=== PATIENT | female | born 1980 | race Caucasian/White ===

== ENCOUNTER 2019-06-09 09:48 | Outpatient (RCR) | payer OTHER, SELFPAY ==
[2019-06-09 11:01] VITALS: BMI 44.8
== END 2019-09-07 23:59 | disposition home or self-care (01) ==
LOC: ANHDMC 09:48
PROVIDERS: PCP Family Medicine; Visit Provider Obstetrics & Gynecology
DX: O24.410 Gestational diabetes mellitus in pregnancy, diet controlled (principal); Z3A.15 15 weeks gestation of pregnancy; Z71.3 Dietary counseling and surveillance; Z71.89 Other specified counseling
CPT/HCPCS: 97802; G0108

== ENCOUNTER 2019-10-24 15:24 | Outpatient (CLI) | payer OTHER, SELFPAY ==
[2019-10-24] VITALS (21 sets, daily range): BP systolic 135–162; BP diastolic 76–95; PULSE 89–114; TEMP 36.6; BMI 45.0
[2019-10-24 16:22] LABS: Basophils Percent Auto 0.2 % (0.2-1.2); Eosinophils Absolute Auto 0.1 K/mm3 (0-0.3); Eosinophils Percent Auto 0.9 % (0-4.4); Hematocrit 37.2 % (37.0-47.0); Hemoglobin 12.2 g/dL (12.0-15.0); Immature Granulocyte Absolute 0.08 K/mm3 (0.00-0.031); Immature Granulocyte Percent A 0.5 % (0-0.5); Lymphocytes Absolute Auto 1.69 K/mm3 (0.9-3.2); Lymphocytes Percent Auto 10.4 % (18.3-44.2); Mean Corpuscular HGB Conc 32.8 g/dl (32-36); Mean Corpuscular Volume 88.4 fl (80-100); Mean Platelet Volume 10.1 fl (7.4-10.4); Monocytes Absolute Auto 0.6 K/mm3 (0.1-0.6); Monocytes Percent Auto 3.9 % (2.6-8.5); Neutrophils Absolute Auto 13.7 K/mm3 (1.3-6.7); Neutrophils Percent Auto 84.1 % (45.5-73.1); Platelet Count Result 233 k/mm3 (150-375); Red Blood Count 4.21 M/mm3 (4.2-5.4); Red Cell Distribution Width 13.8 % (11.5-14.5); White Blood Count 16.3 K/mm3 (4.5-10.0)
[2019-10-24 16:29] LABS: Add Urine Microscopic? YES; Appearance Urine Cloudy (Clear); Bacteria Urine 4+ /hpf; Bilirubin Urine Negative (Negative); Blood Urine Negative (Negative); Color Urine Yellow (Yellow); Glucose Urine UA Negative (Negative); Ketones Urine Trace mg/dL (Negative); Leukocyte Esterase Ur 3+ LEU/UL (NEGATIVE); Mucus Urine Rare /lpf; Nitrate Urine Negative (Negative); Protein Urine Negative (Negative); Specific Grav Ur 1.018 (1.001-1.035); Squamous Epithelial Cell Urine Many /hpf (Few); Urobilinogen Urine Negative mg/dL (<2.0); WBC Urine >75 /hpf (0-3)
[2019-10-24 16:31] LABS: Creatinine Urine 116.1 mg/dL; Total Protein Urine Random 9 mg/dL
[2019-10-24 16:34] LABS: Alanine Aminotransferase 11 U/L (4-35); Albumin Level 3.6 g/dL (3.5-5.1); Alkaline Phosphatase 153 U/L (38-126); Aspartate Amino Transferase 18 U/L (14-36); Bilirubin,Total 0.8 mg/dL (0.2-1.3); Blood Urea Nitrogen 8 mg/dL (7-17); Calcium 9.4 mg/dL (8.4-10.2); Carbon Dioxide 20 mmol/L (22-30); Chloride 106 mmol/L (98-107); Estimated Glomerular Filt Rate > 60; Glucose 85 mg/dL (65-105); Potassium 3.9 mmol/L (3.4-5.0); Sodium 133 mmol/L (137-145); Uric Acid 5.8 mg/dL (2.5-7.5)
[2019-10-24 17:41] LABS: Glucose Point of Care 78 (65-105)
--- NOTE | 2019-10-24 17:50 | PC.NURSE ---
Called Dr Gray. Reported patient's lab results and blood pressures. Reported patient came in saying she has been monitoring her blood pressure at home and it has been creeping up. She also states she doesn't feel herself, has a small headache and felt nauseous earlier today. FHR is reactive. Small contractions that patient doesn't feel. Dr Gray wants patient monitored until 2029. If her BPs get above 160/110, start hypertensive protocol.
--- NOTE | 2019-10-24 19:44 | PC.NURSE ---
Updated Dr. Gray on patient BP's. Order for Labetolol 100mg NOW PO. Called Dr. Gray with BP's 1 hour after administering.
[2019-10-24] MEDS: LABETALOL HCL 100 MG TABLET PO (20:00)
--- NOTE | 2019-10-24 20:15 | PC.NURSE ---
Patient educated on 24 hour urine collection. Patient stated understanding and denies questions. 24 Hour urine collection started 10/24/2019 at 2015.
--- NOTE | 2019-10-24 20:39 | OBADM ---
This patient, Tanja Spring, admitted to the OB room Labor/Delivery/Recovery 119 for observation. Patient/family oriented to hospital policies and general routines including ID bracelet, bed and alarms, visiting hours, pain management, procedures, bathroom and other care routines, personal items, smoking policy, room service/diet, and visiting hours. Patient/Family are encouraged to report perceived risks to care and to ask questions if they do not understand what they are told or what they should do.
--- NOTE | 2019-10-24 21:06 | PC.NURSE ---
Discharge orders received from Dr Gray.
--- NOTE | 2019-10-24 21:22 | PC.NURSE ---
Discharge instructions reviewed with patient. Patient educated on 24 hour urine collection. Patient educated on labetalol and instructed to draft roller picker prescription at preferred pharmacy. Patient states understanding of discharge paperwork. Patient instructed to call Dr. Gray's office on Saturday for follow-up appointment. HIP precautions reviewed with patient. Patient states understanding of all discharge paperwork and teaching. Patient denies questions.
[2019-10-24 21:25] LABS: Glucose Point of Care 123 (65-105)
== END 2019-10-24 21:23 | disposition home or self-care (01) ==
LOC: ANHOBOP 15:30 → ANHLDR 15:30
PROVIDERS: Visit Provider Obstetrics & Gynecology
DX: O13.9 Gestational [pregnancy-induced] hypertension without significant proteinuria, unspecified trimester (principal)
CPT/HCPCS: 36415; 59025; 80053; 81001; 82570; 84156; 84550; 85025; 87086; 87088; A9270

== ENCOUNTER 2019-10-31 13:19 | Outpatient (CLI) | payer OTHER, SELFPAY ==
[2019-10-31] MEDS: TETANUS,DIPHTHERIA,AC PERTUSSIS ADULT 0.5 ML (ADACEL) IM (14:03)
== END 2019-10-31 13:20 | disposition home or self-care (01) ==
LOC: ANHOBOP 13:22
PROVIDERS: Visit Provider Obstetrics & Gynecology
DX: Z23 Encounter for immunization (principal)
CPT/HCPCS: 90715

== ENCOUNTER 2019-11-04 09:08 | Inpatient (IN) | payer OTHER, SELFPAY ==
[2019-11-04] VITALS (19 sets, daily range): BP systolic 125–154; BP diastolic 68–92; PULSE 80–105; TEMP 36.3; BMI 45.0
--- NOTE | ~2019-11-04 | US_ITS ---
EXAMINATION: US OB limited w BPP EXAM DATE: 11/04/2019 13:21 INDICATION: Gestational diabetes, elevated blood pressure. Third trimester. TECHNIQUE: Pelvic obstetrical transabdominal sonogram was performed by a technologist. There are mu ltiple grayscale and Doppler images available for interpretation. There are no earlier studies of th is gestation for comparison. FINDINGS: There is a single fetus identified in breech presentation with a heart rate of 150 beats pe r minute. The placenta is located in the posterior fundal position. There is no sonographic evidence of retroplacental hemorrhage identified. The amniotic fluid index is 19.5 centimeters, which is norm al. BIOPHYSICAL PROFILE (performed by the technologist) breathing (30 sec sustained breathing in 30 minutes): 2 out of 2 movement (3 gross body movements in 30 minutes): 2 out of 2 tone (one episode of ywkjemu-tfvzeghro-ihmpebl limb movement): 2 out of 2 Amniotic fluid pocket (2 cm): 2 out of 2 Total score: 8 out of 8 IMPRESSION: 1. Single fetus with heart rate of 150 bpm. 2. Normal biophysical profile score of 8 out of 8. 3. Normal HUGO 19.5 cm. Reviewed, dictated and finalized at location B.
--- NOTE | 2019-11-04 09:07 | LDADM ---
This patient, Tanja Spring, was admitted to OB Post 116 on 11/04/19 at 09:08. Plans for labor, pain management and were discussed with patient. Patient/family oriented to hospital policies and general routines including ID bracelet, bed and alarms, visiting hours, pain management, procedures, bathroom and other care routines, personal items, smoking policy, room service/diet and guest tray routines, infant security routines, and visiting hours. Patient/Family are encouraged to report perceived risks to care and to ask questions if they do not understand what they are told or what they should do. See OBIX for further documentation.
[2019-11-04 09:53] LABS: Basophils Percent Auto 0.2 % (0.2-1.2); Eosinophils Absolute Auto 0.2 K/mm3 (0-0.3); Eosinophils Percent Auto 1.5 % (0-4.4); Hematocrit 34.9 % (37.0-47.0); Hemoglobin 11.7 g/dL (12.0-15.0); Immature Granulocyte Absolute 0.05 K/mm3 (0.00-0.031); Immature Granulocyte Percent A 0.4 % (0-0.5); Lymphocytes Absolute Auto 1.31 K/mm3 (0.9-3.2); Lymphocytes Percent Auto 11.4 % (18.3-44.2); Mean Corpuscular HGB Conc 33.5 g/dl (32-36); Mean Corpuscular Hemoglobin 29.3 pg (26-34); Mean Corpuscular Volume 87.3 fl (80-100); Mean Platelet Volume 9.8 fl (7.4-10.4); Monocytes Absolute Auto 0.5 K/mm3 (0.1-0.6); Monocytes Percent Auto 4.4 % (2.6-8.5); Neutrophils Absolute Auto 9.4 K/mm3 (1.3-6.7); Neutrophils Percent Auto 82.1 % (45.5-73.1); Platelet Count Result 230 k/mm3 (150-375); White Blood Count 11.5 K/mm3 (4.5-10.0)
[2019-11-04 10:05] LABS: Alanine Aminotransferase 14 U/L (4-35); Albumin Level 3.3 g/dL (3.5-5.1); Alkaline Phosphatase 151 U/L (38-126); Aspartate Amino Transferase 19 U/L (14-36); Bilirubin,Total 0.8 mg/dL (0.2-1.3); Blood Urea Nitrogen 5 mg/dL (7-17); Carbon Dioxide 20 mmol/L (22-30); Chloride 106 mmol/L (98-107); Estimated Glomerular Filt Rate > 60; Glucose 133 mg/dL (65-105); Potassium 3.8 mmol/L (3.4-5.0); Sodium 134 mmol/L (137-145); Uric Acid 5.6 mg/dL (2.5-7.5)
[2019-11-04 10:29] LABS: Creatinine Urine 130.2 mg/dL; Total Protein Urine Random 10 mg/dL
--- NOTE | 2019-11-04 10:39 | PC.NURSE ---
Called Dr. Spring with pt status. Informed of labs, BPs, NSt, blood glucose, and pain. Orders received.
[2019-11-04] MEDS: ACETAMINOPHEN 500 MG TABLET 1000 MG PO (11:56)
--- NOTE | 2019-11-04 12:20 | PC.NURSE ---
Dr. Spring at bedside. Plan of care discussed with pt. Orders received.
[2019-11-04 12:24] LABS: Add Urine Microscopic? YES; Appearance Urine Cloudy (Clear); Bacteria Urine 4+ /hpf; Bilirubin Urine Negative (Negative); Blood Urine Negative (Negative); Color Urine Yellow (Yellow); Glucose Urine UA Negative (Negative); Ketones Urine Negative (Negative); Leukocyte Esterase Ur 3+ LEU/UL (NEGATIVE); Mucus Urine Rare /lpf; Nitrate Urine Negative (Negative); Protein Urine Negative (Negative); Specific Grav Ur 1.008 (1.001-1.035); Squamous Epithelial Cell Urine Many /hpf (Few); Urobilinogen Urine Negative mg/dL (<2.0); WBC Urine 31-50 /hpf (0-3)
--- NOTE | 2019-11-04 12:55 | PM.IMHP ---
H&P: HPI History of Present Illness Chief complaint: PIH Narrative: Tanja Spring is a 39 year old female currently 36w3d gestation with an AMANDEEP 11/29/19. This is an IVF/frozen cycle and patient is dated by initial early ultrasound. Patient has known history of chronic hypertension. She was normotensive without medication for the majority of her , however, began to experience a slight increase in blood pressure measurements a few weeks ago. Patient was started on Labetalol 100 mg b.i.d. She did not meet criteria for preeclampsia as all laboratory findings were within normal limits. Since beginning medication, patient's blood pressure at home has ranged from 120 to 140s over 70s to 90s. Patient reports waking up this morning and just did not feel right. She took her blood pressure and initial blood pressure measurement was 140s over 90s. She had just taken her labetalol and repeated blood pressure approximately 1 hour later and noted that the SBP was in the 150s. She presented to L&D for evaluation. She also states that upon waking this morning, she had a headache as well as constant epigastric pain that radiates to right side of upper abdomen. Denies any lower abdominal pain. States that pain is constant and is rated 5-6/10. Pain does not seem to be affected by position, breathing, or activity and is persistent. Patient had not taken any medication prior to arrival on Labor and delivery. Otherwise she denies any chest pain, shortness of breath, nausea, vomiting, or visual disturbances. Patient does have a history of GERD, however, states that the epigastric pain she is experiencing is significantly different from her usual GERD symptoms. Patient also has a history of gestational diabetes during this and is currently being managed with insulin. She denies any leakage of fluid or vaginal bleeding. Denies contractions and reports good movement. On Labor and Delivery, patient's blood pressure was initially within normal limits however began to increase. Patient's headache and epigastric pain remained persistent despite Tylenol administration. Although patient's laboratory results were within normal limits, due to the recent increase in patient's blood pressures and persistent symptoms, decision made to admit patient to L&D for delivery secondary to chronic hypertension with worsening blood pressure. Review of Systems Review of Systems: All systems reviewed & are unremarkable except as noted in HPI and below Constitutional: Constitutional: Reports as per HPI and Reports no additional constitutional complaints Eyes: Eyes: Reports no additional eye complaints and Denies blurry vision ENT: Reports system reviewed and no additional complaints, except as documented, Reports as per HPI and Reports Normal hearing present Cardiovascular: Cardiovascular: Reports as per HPI, Reports no additional cardiovascular complaints, Denies chest pain and Denies lightheadedness Respiratory: Respiratory: Reports as per HPI, Reports no additional respiratory complaints, Denies cough and Denies dyspnea Gastrointestinal: Gastrointestinal: Reports as per HPI, Reports no additional gastrointestinal complaints, Reports abdominal pain, Denies heartburn, Denies nausea and Denies vomiting Genitourinary: Genitourinary: Reports no additional female genitourinary complaints and Reports as per HPI Musculoskeletal: Musculoskeletal: Reports no additional musculoskeletal complaints and Reports as per HPI Integumentary/Breasts: Skin/Breast: Reports system reviewed and no additional complaints, except as docu and Reports as per HPI Neurologic: Reports system reviewed and no additional complaints, except as documented, Reports as per HPI and Reports headache(s) Psychiatric: Psychiatric: Reports no additional psychiatric complaints and Reports as per HPI Endocrine: Endocrine: Reports no additional endocrine complaints Hematologic/Lymphatic: Hemat
--- NOTE | 2019-11-04 13:52 | PC.NURSE ---
Called Dr. Spring with pt status. Pt states that she is uncomfortable with contractions and epigastric pain. Informed of BP, and ultrasound report. Order received.
[2019-11-04] MEDS: BETAMETHASONE SOD PHOS/ACETATE 30 MG/5 ML VIAL 12 MG IM (14:13)
[2019-11-04 15:00] LABS: Glucose Point of Care 134 (65-105)
[2019-11-04] MEDS: LABETALOL HCL 100 MG TABLET PO (20:20)
[2019-11-04] MEDS: metFORMIN HCL 500 MG TABLET 1000 MG PO (20:32)
[2019-11-04 20:42] LABS: Glucose Point of Care 216 (65-105)
--- NOTE | 2019-11-04 20:42 | PC.NURSE ---
reported blood sugar to dr abdullahi. She instructed for pt to take bedtime dose of insulin.
[2019-11-05] VITALS (63 sets, daily range): BP systolic 75–148; BP diastolic 50–96; PULSE 57–102; RESP 13–23; TEMP 36.3–37.2; O2SAT 93–100
--- NOTE | 2019-11-05 07:43 | WPDANESEPPF ---
Anes - Initial Pre Proc Eval Procedure: Operation Date: 11/05/19 14:00 Proposed Procedures p Primary Section - Lakeisha Spring MD Date/Time: 11/05/19 07:43 Surgeon: Van Gray MD Pre Op Diagnosis: PIH Patient Data Age: 39 Gender: F Height: 1.68 m Weight: 126.5 kg Last Vital Signs Temp 36.7 C 11/05/19 04:00 Pulse 102 H 11/05/19 07:01 BP 148/96 H 11/05/19 07:01 Allergies Allergy/AdvReac Type Severity Reaction Status Date / Time bee venom protein (honey bee) Allergy Severe Anaphylactic Verified 10/26/19 11:00 Shock Home Medications Medication Instructions Recorded Confirmed Type blood sugar diagnostic #100 each 06/23/19 10/24/19 Rx metformin 1,000 mg tablet 1,000 mg PO DAILY 06/23/19 11/04/19 History metformin 500 mg tablet,extended 500 mg PO DAILY 06/23/19 11/04/19 History release 24 hr vits 75-iron 28 mg-folic 1 pkg PO DAILY 06/23/19 11/04/19 History acid 800 mcg-omega-3 oral combo pack sertraline 100 mg tablet 100 mg PO DAILY #30 tablet 07/20/19 11/04/19 Rx insulin detemir U-100 100 unit/mL 34 unit SUB-Q DAILY 09/10/19 11/04/19 History subcutaneous solution labetalol 100 mg PO Q12H 30 Days #60 tablet 10/24/19 11/04/19 Rx Laboratory Tests 11/04/19 11/04/19 11/04/19 09:38 09:38 09:38 WBC 11.5 K/mm3 H K/mm3 (4.5-10.0) RBC 4.00 M/mm3 L M/mm3 (4.2-5.4) Hgb 11.7 g/dL L g/dL (12.0-15.0) Hct 34.9 % L % (37.0-47.0) MCV 87.3 fl fl (80-100) MCH 29.3 pg pg (26-34) MCHC 33.5 g/dl g/dl (32-36) RDW 14.0 % % (11.5-14.5) Plt Count 230 k/mm3 k/mm3 (150-375) MPV 9.8 fl fl (7.4-10.4) Immature Gran % (Auto) 0.4 % % (0-0.5) Neut % (Auto) 82.1 % H % (45.5-73.1) Lymph % (Auto) 11.4 % L % (18.3-44.2) [place] % (Auto) 4.4 % % (2.6-8.5) Eos % (Auto) 1.5 % % (0-4.4) Baso % (Auto) 0.2 % % (0.2-1.2) Lymph # (Auto) 1.31 K/mm3 K/mm3 (0.9-3.2) [place] # (Auto) 0.5 K/mm3 K/mm3 (0.1-0.6) Eos # (Auto) 0.2 K/mm3 K/mm3 (0-0.3) Baso # (Auto) 0.0 K/mm3 K/mm3 (0.0-0.1) Abs Immat Gran (auto) 0.05 K/mm3 H K/mm3 (0.00-0.031) Absolute Neuts (auto) 9.4 K/mm3 H K/mm3 (1.3-6.7) Absolute Nucleated RBC 0.0 K/mm3 K/mm3 (0.0-0.012) Nucleated RBC % 0.0 % % (0.0-0.2) Sodium 134 mmol/L L mmol/L (137-145) Potassium 3.8 mmol/L mmol/L (3.4-5.0) Chloride 106 mmol/L mmol/L (98-107) Carbon Dioxide 20 mmol/L L mmol/L (22-30) BUN 5 mg/dL L mg/dL (7-17) Creatinine 0.50 mg/dL L mg/dL (0.7-1.0) Estim Creat Clear Calc Not Reportable Estimated GFR > 60 (59 - ) Glucose 133 mg/dL H mg/dL (65-105) POC Capillary Glucose Uric Acid 5.6 mg/dL mg/dL (2.5-7.5) Calcium 9.0 mg/dL mg/dL (8.4-10.2) Total Bilirubin 0.8 mg/dL mg/dL (0.2-1.3) AST 19 U/L U/L (14-36) ALT 14 U/L U/L (4-35) Alkaline Phosphatase 151 U/L H U/L (38-126) Total Protein 7.0 g/dL g/dL (6.3-8.2) Albumin 3.3 g/dL L g/dL (3.5-5.1) Urine Color Urine Appearance Urine pH Ur Specific [place] Urine Protein Urine Glucose (UA) Urine Ketones Ur Blood (Man) Urine Nitrate Urine Bilirubin Urine Urobilinogen Ur Leukocyte Esterase Urine RBC Urine WBC Ur Squamous Epith Cells Urine Bacteria Urine Mucus U Random Total Protein 10 mg/dL mg/dL Urine Creatinine 130.2 mg/dL mg/dL 11/04/19 11/04/19 11/04/19 12:07 14:57 20:23 WBC RBC
[2019-11-05 08:19] LABS: Basophils Percent Auto 0.2 % (0.2-1.2); Eosinophils Percent Auto 0.1 % (0-4.4); Hematocrit 36.3 % (37.0-47.0); Hemoglobin 11.8 g/dL (12.0-15.0); Immature Granulocyte Absolute 0.07 K/mm3 (0.00-0.031); Immature Granulocyte Percent A 0.5 % (0-0.5); Lymphocytes Absolute Auto 1.63 K/mm3 (0.9-3.2); Lymphocytes Percent Auto 11.1 % (18.3-44.2); Mean Corpuscular HGB Conc 32.5 g/dl (32-36); Mean Corpuscular Hemoglobin 28.6 pg (26-34); Mean Corpuscular Volume 87.9 fl (80-100); Mean Platelet Volume 10.3 fl (7.4-10.4); Monocytes Absolute Auto 0.7 K/mm3 (0.1-0.6); Monocytes Percent Auto 4.6 % (2.6-8.5); Neutrophils Absolute Auto 12.3 K/mm3 (1.3-6.7); Neutrophils Percent Auto 83.5 % (45.5-73.1); Platelet Count Result 235 k/mm3 (150-375); Red Blood Count 4.13 M/mm3 (4.2-5.4); Red Cell Distribution Width 14.1 % (11.5-14.5); White Blood Count 14.7 K/mm3 (4.5-10.0)
[2019-11-05] MEDS: LACTATED RINGERS 1,000 ML 999 ML IV CONT ×3 (08:30→10:45)
--- NOTE | 2019-11-05 08:31 | PM.OBPNVD ---
OB - PN: Subj Subjective Date/time seen: 11/05/19 08:31 Patient reports feeling relatively unchanged since yesterday. States that abdominal pain is a little bit better, however, reports persistent headache that did not improve overnight. Patient reports feeling extremely tired this morning. Blood pressure remained mostly within normal limits overnight with few elevations. Plan is to proceed with delivery as previously discussed. Limited bedside ultrasound performed confirming fetus in breech presentation. Plan is to proceed with a section. Indication, risk, and benefits of procedure discussed with patient. Patient understands and agrees with plan. OB - PN: Obj Data Labs CBC & Chem 7: 11/05/19 07:55 11/04/19 09:38 Labs: Laboratory Results - last 24 hr 11/04/19 11/04/19 11/04/19 09:38 09:38 09:38 WBC 11.5 H RBC 4.00 L Hgb 11.7 L Hct 34.9 L MCV 87.3 MCH 29.3 MCHC 33.5 RDW 14.0 Plt Count 230 MPV 9.8 Immature Gran % (Auto) 0.4 Neut % (Auto) 82.1 H Lymph % (Auto) 11.4 L [place] % (Auto) 4.4 Eos % (Auto) 1.5 Baso % (Auto) 0.2 Lymph # (Auto) 1.31 [place] # (Auto) 0.5 Eos # (Auto) 0.2 Baso # (Auto) 0.0 Abs Immat Gran (auto) 0.05 H Absolute Neuts (auto) 9.4 H Absolute Nucleated RBC 0.0 Nucleated RBC % 0.0 Sodium 134 L Potassium 3.8 Chloride 106 Carbon Dioxide 20 L BUN 5 L Creatinine 0.50 L Estim Creat Clear Calc Not Reportable Estimated GFR > 60 Glucose 133 H POC Capillary Glucose Uric Acid 5.6 Calcium 9.0 Total Bilirubin 0.8 AST 19 ALT 14 Alkaline Phosphatase 151 H Total Protein 7.0 Albumin 3.3 L Urine Color Urine Appearance Urine pH Ur Specific [place] Urine Protein Urine Glucose (UA) Urine Ketones Ur Blood (Man) Urine Nitrate Urine Bilirubin Urine Urobilinogen Ur Leukocyte Esterase Urine RBC Urine WBC Ur Squamous Epith Cells Urine Bacteria Urine Mucus U Random Total Protein 10 Urine Creatinine 130.2 11/04/19 11/04/19 11/04/19 12:07 14:57 20:23 WBC RBC Hgb Hct MCV MCH MCHC RDW Plt Count MPV Immature Gran % (Auto) Neut % (Auto) Lymph % (Auto) [place] % (Auto) Eos % (Auto) Baso % (Auto) Lymph # (Auto) [place] # (Auto) Eos # (Auto) Baso # (Auto) Abs Immat Gran (auto) Absolute Neuts (auto) Absolute Nucleated RBC Nucleated RBC % Sodium Potassium Chloride Carbon Dioxide BUN Creatinine Estim Creat Clear Calc Estimated GFR Glucose POC Capillary Glucose 134 H 216 H Uric Acid Calcium Total Bilirubin AST ALT Alkaline Phosphatase Total Protein Albumin Urine Color Yellow Urine Appearance Cloudy H Urine pH 7.0 Ur Specific [place] 1.008 Urine Protein Negative Urine Glucose (UA) Negative Urine Ketones Negative Ur Blood (Man) Negative Urine Nitrate Negative Urine Bilirubin Negative Urine Urobilinogen Negative Ur Leukocyte Esterase 3+ H Urine RBC 3-5 H Urine WBC 31-50 H Ur Squamous Epith Cells Many H Urine Bacteria 4+ H Urine Mucus Rare U Random Total Protein Urine Creatinine 11/05/19 07:55 WBC 14.7 H RBC 4.13 L Hgb 11.8 L Hct 36.3 L MCV 87.9 MCH 28.6 MCHC 32.5 RDW 14.1 Plt Count 235 MPV 10.3 Immature Gran % (Auto) 0.5 Neut % (Auto) 83.5 H Lymph % (Auto) 11.1 L [place] % (Auto) 4.6 Eos % (Auto) 0.1 Baso % (Auto) 0.2 Lymph # (Auto) 1.63 [place] # (Auto) 0.7 H Eos # (Auto) 0.0 Baso # (Auto) 0.0 Abs Immat Gran (auto) 0.07 H Absolute Neuts (auto) 12.3 H Absolute Nucleated RBC 0.0 Nucleated RBC % 0.0 Sodium Potassium Chloride Carbon Dioxide BUN Creatinine Estim Creat Clear Calc Estimated GFR Glucose POC Capillary Glucose Uric Acid Calcium To
[2019-11-05] MEDS: SERTRALINE HCL 50 MG TABLET 100 MG PO (08:35)
[2019-11-05] MEDS: LABETALOL HCL 100 MG TABLET PO (08:35)
[2019-11-05] MEDS: metFORMIN HCL XR 500 MG TAB.SR.24H PO (08:39)
[2019-11-05] MEDS: ceFAZolin 3 GM/D5W 100 ML 100 ML IVPB (09:43)
[2019-11-05 09:52] LABS: HIV 1/2 Ab P24 Ag Result Negative (Negative)
[2019-11-05 09:54] LABS: Rubella IgG Antibody 90.2 IU/ML
[2019-11-05 09:58] LABS: Hepatitis B Surface Antigen Negative (Negative)
[2019-11-05 10:10] LABS: Alanine Aminotransferase 15 U/L (4-35); Albumin Level 3.3 g/dL (3.5-5.1); Alkaline Phosphatase 146 U/L (38-126); Aspartate Amino Transferase 20 U/L (14-36); Bilirubin,Total 0.9 mg/dL (0.2-1.3); Blood Urea Nitrogen 7 mg/dL (7-17); Calcium 9.1 mg/dL (8.4-10.2); Carbon Dioxide 21 mmol/L (22-30); Chloride 105 mmol/L (98-107); Estimated CRCL calculation 171 ml/min; Estimated Glomerular Filt Rate > 60; Glucose 101 mg/dL (65-105); Potassium 3.9 mmol/L (3.4-5.0); Sodium 134 mmol/L (137-145)
[2019-11-05] MEDS: KETOROLAC 30 MG/ML VIAL (*BKC) IV PUSH (11:20)
--- NOTE | 2019-11-05 12:21 | PM.PROC ---
Procedure Note - Detailed Date of procedure: 11/05/19 Pre-op diagnosis: PIH IUP at 36w4d CHTN with worsening HTN and peristent headache AMA IVF GDM, insulin dependent Post-op diagnosis: same Procedure performed: Primary low transverse section via Pfannenstiel Description of procedure: The patient was taken to the operating room where she self transferred to the operating room table. Spinal anesthesia was administered and found to be adequate. The patient was placed in dorsal supine position with a leftward tilt. She was prepped and draped in the usual sterile fashion. A Pfannenstiel skin incision was made with scalpel and carried through to the underlying layer of fascia with the Bovie. The fascia was incised in the midline and the incision was extended laterally with the use of forceps and Haro scissors. The inferior aspect of the fascial incision was grasped with Bartolome clamps, elevated, and the rectus muscles were dissected off with Haro scissors. Attention was turned to the superior aspect of the fascial incision, which in similar manner, was grasped with Bartolome clamps, elevated, and the underlying rectus muscles were also dissected off with Haro scissors. The rectus muscles were in the midline and the peritoneal cavity was entered bluntly. This incision was extended superiorly and inferiorly with good visualization of the bladder. Care was taken to avoid blood vessels. The peritoneum was gently stretched for enhanced visualization. A bladder blade was inserted. The vesicouterine peritoneum was identified and grasped with forceps and entered sharply with Metzenbaum scissors. This incision was extended laterally with the use of Metzenbaum scissors and a bladder flap was created digitally. The bladder blade was reinserted. A low-transverse uterine incision was made with scalpel. This incision was extended with bandage scissors. Amniotomy was performed. Clear amniotic fluid was noted. The infant was noted to be in transverse presentation with head to maternal left side. With gentle maneuvers, the infant's head was grasped and guided to the level of the uterine incision as the remainder of the body was gently depressed cephalad. The 's head was delivered through the incision atraumatically without difficulty followed by the infant's neck, shoulders, and rest of body with gentle fundal pressure. A body cord was noted. The infant's mouth and nose were suctioned with bulb suction. The cord was clamped and cut and the infant was handed off to awaiting nursing staff. A segment of cord was collected for cord gases. Cord blood was also collected. The placenta was delivered spontaneously with fundal massage. An attempt was made to exteriorize the uterus, however, uterus was relatively large and globular and unable to be delivered. Therefore, it was left in situ. The uterus was cleared of all clots and debris. The uterine incision was reapproximated with 0 Vicryl in a running, locked fashion. A 2nd imbricating layer using 0 Monocryl was also performed. Pinpoint areas of bleeding beneath the uterine incision were made hemostatic with Bovie. The anterior surface of the uterus was well visualized, however, the remainder of the uterus was not well visualized. No gross abnormalities were noted and no abnormalities were palpated. The ovaries and fallopian tubes were not visualized. On reinspection of the incision, a small area of bleeding was noted beneath the uterine incision. This area was made hemostatic with a single awengt-ir-cnmem suture using 0 Monocryl. Excellent hemostasis was noted. Hemaderm was applied across the surgical field. Seprafilm was also applied across the uterine incision and anterior surface of the uterus. The peritoneum was reapproximated with 2-0 Monocryl. The fascia was reapproximated with 0 Vicryl in a running fashion. The subcutaneous layer was irrigated with water. Pinpoint areas of bleeding were made hemosta
[2019-11-05] MEDS: DOCUSATE SODIUM 100 MG CAPSULE PO (14:58)
[2019-11-05] MEDS: OXYTOCIN 30 UNITS/NS 500 ML 30 UNITS/500 ML BAG 125 UNITS IV CONT (15:02)
[2019-11-05 18:23] LABS: Glucose Point of Care 83 (65-105)
[2019-11-05] MEDS: DEXTROSE 5%/0.45% SOD CHL 1,000 ML 125 ML IV CONT (18:40)
--- NOTE | 2019-11-05 20:37 | PC.NURSE ---
pt admitted to room 287 per stretcher from labor and delivery after primary delivery of viable male at 1027 today. Mother is a and is choosing to bottle feed . FOB present; Baby in Level II nursery at this time because of respiratory distress. Couple oriented to room staffing and procedures; admission folder reviewed with them. Pt's VSS and assessment WNL.
[2019-11-05] MEDS: metFORMIN HCL XR 500 MG TAB.SR.24H 1000 MG PO (22:17)
[2019-11-06 00:43] LABS: Glucose Point of Care 63 (65-105)
--- NOTE | 2019-11-06 03:05 | PC.NURSE ---
1954 Hung 1000ml LR, Bolusing 500 ml at 500 ml/hr and then running remaining 500 ml at 150 per hour. 99 LR finished, restarted D5-1/2 NS at 125 ml/hr.
[2019-11-06 04:44] LABS: Basophils Percent Auto 0.1 % (0.2-1.2); Eosinophils Absolute Auto 0.2 K/mm3 (0-0.3); Eosinophils Percent Auto 1.2 % (0-4.4); Hematocrit 29.2 % (37.0-47.0); Hemoglobin 9.6 g/dL (12.0-15.0); Immature Granulocyte Absolute 0.06 K/mm3 (0.00-0.031); Immature Granulocyte Percent A 0.4 % (0-0.5); Lymphocytes Absolute Auto 1.39 K/mm3 (0.9-3.2); Lymphocytes Percent Auto 10.3 % (18.3-44.2); Mean Corpuscular HGB Conc 32.9 g/dl (32-36); Mean Corpuscular Hemoglobin 29.1 pg (26-34); Mean Corpuscular Volume 88.5 fl (80-100); Mean Platelet Volume 9.9 fl (7.4-10.4); Monocytes Absolute Auto 0.6 K/mm3 (0.1-0.6); Monocytes Percent Auto 4.4 % (2.6-8.5); Neutrophils Absolute Auto 11.3 K/mm3 (1.3-6.7); Neutrophils Percent Auto 83.6 % (45.5-73.1); Platelet Count Result 181 k/mm3 (150-375); Red Cell Distribution Width 13.9 % (11.5-14.5); White Blood Count 13.5 K/mm3 (4.5-10.0)
[2019-11-06 04:50] VITALS: BP 126/78; PULSE 86; RESP 13; TEMP 36.6; O2SAT 93
[2019-11-06 08:15] VITALS: BP 116/65; PULSE 78; RESP 18; TEMP 36.8; O2SAT 96
[2019-11-06 08:21] LABS: Glucose Point of Care 79 (65-105)
[2019-11-06] MEDS: DOCUSATE SODIUM 100 MG CAPSULE PO ×2 (08:37→17:04)
[2019-11-06] MEDS: POLYSACCHARIDE IRON COMPLEX 150 MG CAPSULE PO ×2 (08:37→17:04)
[2019-11-06] MEDS: metFORMIN HCL XR 500 MG TAB.SR.24H PO (08:38)
[2019-11-06] MEDS: IBUPROFEN 600 MG TABLET PO (08:38)
[2019-11-06] MEDS: SERTRALINE HCL 50 MG TABLET 100 MG PO (08:38)
--- NOTE | 2019-11-06 09:28 | PM.OBPNVD ---
OB - PN: Subj Subjective Date/time seen: 11/06/19 09:28 Patient doing well this morning. Reports complete resolution of headache. Denies any chest pain, shortness of breath, nausea, vomiting, or visual disturbances. Reports mild abdominal pain, well controlled with medication. Patient is tolerating regular diet. Magdaleno catheter in place. She has not yet ambulated. + flatus. OB - PN: Obj Data Labs CBC & Chem 7: 11/06/19 04:11 11/05/19 08:51 Labs: Laboratory Results - last 24 hr 11/05/19 11/05/19 11/05/19 07:55 07:55 07:55 WBC RBC Hgb Hct MCV MCH MCHC RDW Plt Count MPV Immature Gran % (Auto) Neut % (Auto) Lymph % (Auto) [place] % (Auto) Eos % (Auto) Baso % (Auto) Lymph # (Auto) [place] # (Auto) Eos # (Auto) Baso # (Auto) Abs Immat Gran (auto) Absolute Neuts (auto) Absolute Nucleated RBC Nucleated RBC % Sodium Potassium Chloride Carbon Dioxide BUN Creatinine Estim Creat Clear Calc Estimated GFR Glucose POC Capillary Glucose Calcium Total Bilirubin AST ALT Alkaline Phosphatase Total Protein Albumin Hep Bs Antigen Negative HIV 1&2 Ab/P24 Ag 4thGn Negative Rubella IgG Antibody 90.2 11/05/19 11/05/19 11/06/19 08:51 18:22 00:38 WBC RBC Hgb Hct MCV MCH MCHC RDW Plt Count MPV Immature Gran % (Auto) Neut % (Auto) Lymph % (Auto) [place] % (Auto) Eos % (Auto) Baso % (Auto) Lymph # (Auto) [place] # (Auto) Eos # (Auto) Baso # (Auto) Abs Immat Gran (auto) Absolute Neuts (auto) Absolute Nucleated RBC Nucleated RBC % Sodium 134 L Potassium 3.9 Chloride 105 Carbon Dioxide 21 L BUN 7 Creatinine 0.50 L Estim Creat Clear Calc 171 Estimated GFR > 60 Glucose 101 POC Capillary Glucose 83 63 L Calcium 9.1 Total Bilirubin 0.9 AST 20 ALT 15 Alkaline Phosphatase 146 H Total Protein 7.0 Albumin 3.3 L Hep Bs Antigen HIV 1&2 Ab/P24 Ag 4thGn Rubella IgG Antibody 11/06/19 11/06/19 04:11 08:17 WBC 13.5 H RBC 3.30 L Hgb 9.6 L Hct 29.2 L MCV 88.5 MCH 29.1 MCHC 32.9 RDW 13.9 Plt Count 181 MPV 9.9 Immature Gran % (Auto) 0.4 Neut % (Auto) 83.6 H Lymph % (Auto) 10.3 L [place] % (Auto) 4.4 Eos % (Auto) 1.2 Baso % (Auto) 0.1 L Lymph # (Auto) 1.39 [place] # (Auto) 0.6 Eos # (Auto) 0.2 Baso # (Auto) 0.0 Abs Immat Gran (auto) 0.06 H Absolute Neuts (auto) 11.3 H Absolute Nucleated RBC 0.0 Nucleated RBC % 0.0 Sodium Potassium Chloride Carbon Dioxide BUN Creatinine Estim Creat Clear Calc Estimated GFR Glucose POC Capillary Glucose 79 Calcium Total Bilirubin AST ALT Alkaline Phosphatase Total Protein Albumin Hep Bs Antigen HIV 1&2 Ab/P24 Ag 4thGn Rubella IgG Antibody OB - PN A/P Assessment and Plan (1) delivery delivered: Code(s): O82 - Encounter for delivery without indication Status: Acute Assessment and Plan: Continue routine postoperative care Pain management as needed Encourage OOB to chair and ambulation Plan is to jose magdaleno this morning Continue SCDs while in bed (2) Chronic hypertension in : Code(s): O10.919 - Unspecified pre-existing hypertension complicating , unspecified trimester Status: Acute Assessment and Plan: BP mostly WNL Labetalol held for now will continue to monitor (3) Diabetes in : Code(s): O24.919 - Unspecified diabetes mellitus in , unspecified trimester Status: Acute Assessment and Plan: Scheduled insulin held Continue FS today Insulin sliding scale as needed (4) Positive urine culture: Code(s): R82.79 - Other abnormal findings on microbiological examination of urin
[2019-11-06 11:34] LABS: Rapid Plasma Reagin Non-Reactive (NonReactive)
[2019-11-06 12:03] LABS: Glucose Point of Care 90 (65-105)
--- NOTE | 2019-11-06 15:56 | WPDANLDPN2 ---
Anes-Prog Note L&D Date/Time: 11/06/19 15:56 Comfortable throughout: section Neuraxial method: spinal Epidural/Spinal procedure site: clean & non-tender Neuro status: Neuro function grossly intact. Cardiovascular status: normal Respiratory status: normal Airway patency: baseline Mental status: baseline Post-Op hydration status: normal Vital Signs: Last Vital Signs Temp 36.8 C 11/06/19 08:15 Pulse 78 11/06/19 08:15 Resp 18 11/06/19 08:15 BP 116/65 11/06/19 08:15 Pulse Ox 96 11/06/19 08:15 I/O: Intake & Output 11/05/19 11/06/19 11/06/19 23:59 07:59 15:59 Intake Total 2000 700 Output Total 353 4403 757 Balance 8397 -[phone] -253 Post-procedural complaints: none Patient feedback: Patient satisfied with anesthetic care.
--- NOTE | 2019-11-06 15:56 | WPDANLDNPN2 ---
Anes-Prog Note L&D-Neuraxial Date/Time: 11/06/19 15:56 Neuraxial medications: intrathecal PF morphine Opiod-related complaints: none Patient feedback: Patient satisfied with post-operative pain management.
[2019-11-06 17:00] VITALS: BP 142/87; PULSE 96; O2SAT 99
[2019-11-06 18:04] LABS: Glucose Point of Care 117 (65-105)
[2019-11-06] MEDS: NITROFURANTOIN MONOHYD MACROCR 100 MG CAP PO (20:35)
[2019-11-06 20:38] VITALS: PULSE 90
[2019-11-06] MEDS: LABETALOL HCL 100 MG TABLET PO (20:38)
[2019-11-06 20:45] VITALS: BP 140/81; PULSE 95; RESP 12; TEMP 36.7
[2019-11-06] MEDS: metFORMIN HCL XR 500 MG TAB.SR.24H 1000 MG PO (20:55)
[2019-11-06 21:10] LABS: Glucose Point of Care 117 (65-105)
[2019-11-07 00:05] VITALS: BP 135/73; PULSE 94; TEMP 36.8
[2019-11-07 07:30] VITALS: BP 146/88; PULSE 80; RESP 16; TEMP 36.4; O2SAT 97
[2019-11-07] MEDS: DOCUSATE SODIUM 100 MG CAPSULE PO ×2 (07:40→16:43)
[2019-11-07] MEDS: metFORMIN HCL XR 500 MG TAB.SR.24H PO (07:40)
[2019-11-07] MEDS: NITROFURANTOIN MONOHYD MACROCR 100 MG CAP PO ×2 (07:40→21:04)
[2019-11-07] MEDS: SERTRALINE HCL 50 MG TABLET 100 MG PO (07:40)
[2019-11-07] MEDS: LABETALOL HCL 100 MG TABLET PO ×2 (07:40→21:04)
[2019-11-07] MEDS: POLYSACCHARIDE IRON COMPLEX 150 MG CAPSULE PO ×2 (07:40→16:43)
[2019-11-07 07:59] LABS: Glucose Point of Care 87 (65-105)
--- NOTE | 2019-11-07 08:53 | P.PNOB_ITS ---
OB - PN: Subj Subjective Date/time seen: 11/07/19 08:53 Patient reports slower recovery this morning. Reports more pain near incision today. She did have a significant lapse in medication overnight while she was a sleep. Denies any headache, chest pain, shortness of breath, nausea, vomiting, or visual disturbances. Patient is tolerating regular diet. Voiding well. Ambulating without difficulty. + flatus. OB - PN: Obj Data Labs CBC & Chem 7: 11/06/19 04:11 11/05/19 08:51 Labs: Laboratory Results - last 24 hr 11/05/19 11/06/19 11/06/19 07:55 12:00 18:02 POC Capillary Glucose 90 117 H RPR Non-reactive 11/06/19 11/07/19 21:07 07:50 POC Capillary Glucose 117 H 87 RPR OB - PN A/P Assessment and Plan (1) delivery delivered: Code(s): O82 - Encounter for delivery without indication Status: Acute Assessment and Plan: doing well continue routine postoperative care pain medication PRN encourage ambulation and use of IS if feeling better this PM, may leave on visitor pass to visit infant anticipate dc tomorrow (2) Chronic hypertension in : Code(s): O10.919 - Unspecified pre-existing hypertension complicating , unspecified trimester Status: Acute Assessment and Plan: Labetalol resumed last night will continue as previously scheduled (3) Diabetes in : Code(s): O24.919 - Unspecified diabetes mellitus in , unspecified trimester Status: Acute Assessment and Plan: FS all WNL may dc FS at this time (4) Positive urine culture: Code(s): R82.79 - Other abnormal findings on microbiological examination of urine Status: Acute Assessment and Plan: continue Macrobid Time Spent With Patient Time: Total time spent is greater than 50% in coordination of care (as documented) at patient's floor/unit and/or counseling patient: Exam Const: General: comfortable and no acute distress GI: Inspection: normal to inspection and non-distended GI Palp: Yes Soft to palpation and No Tenderness to palpation present (GI) Other: fundus below umbilicus, inc c/d/i, no erythema or drainage Extrem: Right lower extremity: no edema Left lower extremity: no edema Other: no calf tenderness, no edema
[2019-11-07 12:45] VITALS: BP 140/86; PULSE 92; RESP 18; TEMP 36.8; O2SAT 96
[2019-11-07] MEDS: IBUPROFEN 600 MG TABLET PO ×3 (13:09→19:46)
[2019-11-07 16:30] VITALS: BP 154/87; PULSE 84; RESP 18; TEMP 36.9; O2SAT 98
[2019-11-07 19:45] VITALS: BP 136/75; PULSE 91; RESP 12; TEMP 36.7
[2019-11-07] MEDS: metFORMIN HCL XR 500 MG TAB.SR.24H 1000 MG PO (21:03)
[2019-11-07 21:04] VITALS: PULSE 86
[2019-11-08 08:30] VITALS: BP 141/73; PULSE 82; RESP 18; TEMP 36.6
--- NOTE | 2019-11-08 09:07 | PM.OBPNVD ---
OB - PN: Subj Subjective Date/time seen: OB - PN: Subj Subjective Date/time seen: 11/07/19 08:53 Patient reports significant improvement this morning. Pain well controlled with medication. Denies any headache, chest pain, shortness of breath, nausea, vomiting, or visual disturbances. Patient is tolerating regular diet. Voiding well. Ambulating without difficulty. + flatus. OB - PN: Obj Data Labs CBC & Chem 7: 11/06/19 04:11 11/05/19 08:51 OB - PN A/P Assessment and Plan (1) delivery delivered: Code(s): O82 - Encounter for delivery without indication Status: Acute Assessment and Plan: discharge home in stable condition f/u in office in 1 week Rx for medication sent to pharmacy emergency precautions reviewed Time Spent With Patient Time: Total time spent is greater than 50% in coordination of care (as documented) at patient's floor/unit and/or counseling patient: Exam Const: General: comfortable and no acute distress GI: GI Palp: Yes Soft to palpation, No Tenderness to palpation present (GI) and No Guarding due to palpation present (GI) Other: fundus below umbilicus Extrem: Right lower extremity: no edema Left lower extremity: no edema
[2019-11-08] MEDS: NITROFURANTOIN MONOHYD MACROCR 100 MG CAP PO (09:10)
[2019-11-08] MEDS: POLYSACCHARIDE IRON COMPLEX 150 MG CAPSULE PO (09:10)
--- NOTE | 2019-11-08 09:10 | PM.OBDSVD ---
DS: Diagnosis Discharge Diagnosis (1) Chronic hypertension in : Code(s): O10.919 - Unspecified pre-existing hypertension complicating , unspecified trimester Status: Acute (2) Diabetes in : Code(s): O24.919 - Unspecified diabetes mellitus in , unspecified trimester Status: Acute (3) Advanced maternal age (AMA) in : Status: Acute (4) delivery delivered: Code(s): O82 - Encounter for delivery without indication Status: Acute OB - DS: Summary OB Procedures : None OB Procedures Intrapartum: OB Procedures: : None Peripartum Data Procedures: Procedures Operation Date: 11/05/19 14:00 Actual Procedures Side Surgeon p Section Lakeisha Spring MD Time Spent with Patient Time attestation: Total time spent providing and/or coordinating discharge services: Exam Const: General: comfortable and no acute distress GI: Inspection: non-distended GI Palp: Yes Soft to palpation and No Tenderness to palpation present (GI) DS: Data Data Completed and Pending Pending studies at discharge: Pending at discharge 11/05/19 10:12 Surgical [PTH] Routine Discharge Plan Discharge Attending physician on discharge: Lakeisha Spring Consulting providers: Cali Gregory ; Peter Wills Discharging Clinician: Lakeisha Spring Anticipated Discharge Date/Time: 11/08/19 09:11 Patient Disposition: Home, Self-Care Activity: no driving, as tolerated and pelvic rest Diet: as tolerated and regular Discharge Instructions: Call office ([phone]) to schedule the following appointments: 1. Postoperative/wound check in 1 week. 2. visit in 4-6 weeks. You may take Ibuprofen 600mg every 6 hours as needed for pain. I have sent a prescription for a stronger pain medication, Volga, to your pharmacy. You may take this as prescribed for breakthrough pain (pain that is not controlled with Ibuprofen). No driving for at least two weeks. You also may not drive while taking narcotics. I have also sent a prescription to your pharmacy for Macrobid, an antibiotic, for the positive urine culture. Pain medication may make you constipated. It may be helpful to take an [id number] stool softener, such as Colace and/or Senokot, along with the pain medication to help lessen constipation. Call office or go to ED for pain not controlled with medication, headache, chest pain, shortness of breath, fever, chills, persistent nausea or vomiting, severe abdominal pain, heavy vaginal bleeding >2 pads/hour, foul vaginal discharge or odor, any redness near incision, severe pain, pus or drainage from incision site, or problems with your breasts. Education: Mom and Baby Guide Given to: Mother Follow-Up: Call your delivering provider's office for an appointment to be seen in: Call MD for appointment Mom should come to the [facility] for the follow-up appointment. Appointment Date/Time: November 10, 2019 at 9:00 am What to expect at your follow-up visit: Blood Pressure Check and Physical Assessment Call [phone] if you are unable to keep your appointment time. BREAST CARE: 1. Wear a snug supportive bra. 2. For engorgement discomfort: Bottle Feeding: ABDOMINAL INCISION: (if applicable) 1. Allow incision to air dry 2. Do NOT use lotions for powders on your incision 3. When showering, allow soap and water to run over the incision, but do not wash incision EPISIOTOMY/PERINEAL CARE: 1. Until bleeding stops, use your ibis bottle after urinating 2. Change your pad frequently throughout the day 3. No tub baths until seen by your physician - You may shower ACTIVITY: 1. Rest as much as possible. 2. Do not exercise or lift anything heavier than your baby (such as laundry or other children.) 3. Avoid stairs or driving as much as possible. 4. Do not put anything into the vagina.
[2019-11-08] MEDS: DOCUSATE SODIUM 100 MG CAPSULE PO (09:11)
[2019-11-08] MEDS: metFORMIN HCL XR 500 MG TAB.SR.24H PO (09:11)
[2019-11-08 09:12] VITALS: PULSE 88
[2019-11-08] MEDS: SERTRALINE HCL 50 MG TABLET 100 MG PO (09:12)
[2019-11-08] MEDS: LABETALOL HCL 100 MG TABLET PO (09:12)
[2019-11-08] MEDS: IBUPROFEN 600 MG TABLET PO (09:13)
[2019-11-10 08:53] VITALS: BP 140/86; RESP 20; TEMP 36.7; O2SAT 99
== END 2019-11-08 10:52 | disposition home or self-care (01) | DRG 786 ==
LOC: ANHOBOP 09:11 → ANHOBPP 09:13 → ANHOBOP 14:12 → ANHOBPP 14:12 → ANHLDR 11-05 10:26 → ANHOB2 11-05 14:52
PROVIDERS: Obstetrics & Gynecology; Admitting Provider Student in an Organized Health Care Education/Training Program; Visit Provider Student in an Organized Health Care Education/Training Program
PROC: 10D00Z1 Extraction of Products of Conception, Low, Open Approach (ICD-10-PCS; CPT 59514; principal; 2019-11-05 14:00)
DX: O10.92 Unspecified pre-existing hypertension complicating childbirth (principal); O60.14X0 Preterm labor third trimester with preterm delivery third trimester, not applicable or unspecified; O32.2XX0 Maternal care for transverse and oblique lie, not applicable or unspecified; O99.214 Obesity complicating childbirth; O69.2XX0 Labor and delivery complicated by other cord entanglement, with compression, not applicable or unspecified; K21.9 Gastro-esophageal reflux disease without esophagitis; O24.424 Gestational diabetes mellitus in childbirth, insulin controlled; Z79.4 Long term (current) use of insulin; R51 Headache; E66.9 Obesity, unspecified; Z37.0 Single live birth; Z3A.36 36 weeks gestation of pregnancy
CPT/HCPCS: 36415; 76815; 76819; 80053; 81001; 82570; 84156; 84550; 85025; 86592; 86703; 86762; 86850; 86900; 86901; 87077; 87086; 87088; 87186; 87340; 88307; A9270; C1765; G0432; J0131; J0690; J0702; J1885; J2274; J2370; J2590; J3010; J7120

== ENCOUNTER → 2020-04-15 15:33 | Outpatient (CLI) | payer OTHER, SELFPAY ==
--- NOTE | ~2020-04-15 | XR_ITS ---
EXAMINATION: XR ankle LT min 3V DATE: 04/15/2020 16:22 INDICATION: Unspecified injury of left lower leg, initial encounter. TECHNIQUE: 4 views of left ankle were obtained. COMPARISON: None. FINDINGS: Bone alignment is normal. No fracture. There is mild osteoarthritis of talonavicular joint. There are enthesophytes at plantar aspect of calcaneal tuberosity and at medial malleolus. There is ankle soft tissue swelling. IMPRESSION: 1. Mild osteoarthritis of talonavicular joint. Reviewed, dictated and finalized at location A.
--- NOTE | ~2020-04-15 | XR_ITS ---
EXAMINATION: XR knee LT 3V DATE: 04/15/2020 16:22 INDICATION: Unspecified injury of left lower leg, initial encounter. TECHNIQUE: 3 views of left knee were obtained. COMPARISON: None. FINDINGS: Bone alignment is normal. No fracture. There is mild tricompartmental osteoarthritis. There is a moderate-sized knee joint effusion. IMPRESSION: 1. Mild left knee osteoarthritis. 2. Moderate-sized left knee joint effusion. Reviewed, dictated and finalized at location A.
== END ==
PROVIDERS: PCP Physician Assistant; Visit Provider Physician Assistant
DX: S89.92XA Unspecified injury of left lower leg, initial encounter (principal); M19.072 Primary osteoarthritis, left ankle and foot; M17.12 Unilateral primary osteoarthritis, left knee; M25.462 Effusion, left knee
CPT/HCPCS: 73562; 73610

== ENCOUNTER → 2020-04-28 14:28 | Outpatient (CLI) | payer OTHER, SELFPAY ==
--- NOTE | ~2020-04-28 | MR_ITS ---
EXAMINATION: MR knee LT wo con DATE: 04/28/2020 16:23 INDICATION: Left knee pain post injury TECHNIQUE: Magnetic resonance imaging (MRI) of the left knee was performed without intravenous contra st. Sequences included coronal PD-weighted FSE, coronal PD-weighted FS FSE, sagittal T2-weighted FSE , sagittal PD-weighted FS FSE and axial PD weighted fat saturated FSE. COMPARISON: None. FINDINGS: Medial compartment: There is linear increased signal extending to contact the superior articular surface at the medial si de of the posterior horn of the medial meniscus on a single sagittal image which is suspicious but in determinate for meniscal tear. Full-thickness chondral ulceration without degenerative subarticular c hanges at the junction of the anterior to central weightbearing medial femoral condyle. Lateral compartment: Lateral meniscus is normal. Deep chondral fissuring at the junction of the anterior to central weight bearing lateral femoral condyle. Additional partial thickness chondral fissuring along the posterior margin of the lateral tibial plateau. Both regions are without degenerative subchondral changes. Patellofemoral compartment: Partial-thickness chondral fissuring involving up to 50% of the cartilage thickness at the medial and lateral patellar facets and intervening apical ridge as well as at the trochlear groove. Chondral ul ceration with subtle cortical irregularity and subcortical edema at the inferior aspect of the medial trochlea. Ligaments and tendons: Posterior cruciate ligament is normal. There is increased signal within the ethmoid aspect of the ant eromedial band of the anterior cruciate ligament which appears indistinct with significantly increase d signal in the region of this distal tibial insertion suspicious for tear. The posterolateral band o f the anterior cruciate ligament appears to remain intact. The medial collateral ligament and fibular collateral ligament complex are normal. Mild distal quadriceps tendinopathy. The patellar tendon is normal. The visualized medial and lateral hamstring tendons as well as the iliotibial band are normal . Fluid: Physiologic amount of fluid in the joint space. No loose osteochondral bodies identified. Osseous/other: There is extensive red marrow reexpansion in the metaphyseal and diaphyseal regions of the distal fem ur and proximal tibia and fibula. No fracture or pathologic marrow replacing process. Subcutaneous va ricosities most prominent along the medial aspect of the knee. IMPRESSION: 1. Likely partial anterior cruciate ligament tear which appears to involve the distal aspect of the a nteromedial bundle. 2. Nonspecific linear region of increased signal which contacts the superior articular surface at the posterior horn of the medial meniscus suspicious for but not meeting strict MRI criteria for menisca l tear. 3. Mild osteoarthritis with moderate grade chondromalacia in all 3 compartments of the left knee and small focus of high-grade chondromalacia at the inferior aspect of the medial trochlea. Reviewed, dictated and finalized at location A. IMPRESSION: 1. Likely partial anterior cruciate ligament tear which appears to involve the distal aspect of the anteromedial bundle. 2. Nonspecific linear region of increased signal which contacts the superior ar ticular surface at the posterior horn of the medial meniscus suspicious for but not meeting strict MRI criteria for meniscal tear. 3. Mild osteoarthritis with moderate grade chondromalacia in all 3 compartments of the left knee and small focus of high-grade chondromalacia at the inferior aspect of the medial trochlea.
== END ==
PROVIDERS: PCP Family Medicine; Visit Provider Physician Assistant
DX: M17.12 Unilateral primary osteoarthritis, left knee (principal)
CPT/HCPCS: 73721

== ENCOUNTER 2020-05-02 09:40 | Outpatient (CLI) | payer OTHER, SELFPAY ==
--- NOTE | 2020-05-02 | ECG_ITS ---
Measurements Intervals [place] Rate: 77 P: 40 DE: 184 QRS: 70 QRSD: 109 T: 66 QT: 388 QTc: 441 Interpretive Statements SINUS RHYTHM POSSIBLE LEFT ATRIAL ENLARGEMENT BASELINE ARTIFACT- I, II, III, AVR, AVL, AVF, V1-V3 BORDERLINE ECG Electronically Signed On 05-02-2020 11:03:52 CDT by Harsha Hinkle D.O.
[2020-05-02 10:45] LABS: Anion Gap 6 mmol/L (8-16); Blood Urea Nitrogen 13 mg/dL (7-17); Calcium 9.2 mg/dL (8.4-10.2); Carbon Dioxide 33 mmol/L (22-30); Chloride 101 mmol/L (98-107); Estimated Glomerular Filt Rate > 60; Glucose 119 mg/dL (65-105); Potassium 4.3 mmol/L (3.4-5.0); Sodium 140 mmol/L (137-145)
== END 2020-05-02 09:41 | disposition home or self-care (01) ==
PROVIDERS: PCP Family Medicine; Visit Provider Orthopaedic Surgery
DX: Z01.818 Encounter for other preprocedural examination (principal); Z01.812 Encounter for preprocedural laboratory examination; I10 Essential (primary) hypertension
CPT/HCPCS: 36415; 80048; 93005

== ENCOUNTER 2020-12-02 14:34 | Emergency (ER) | payer OTHER, SELFPAY ==
[2020-12-02 14:40] VITALS: BP 144/95; PULSE 97; RESP 16; TEMP 37; O2SAT 100
--- NOTE | 2020-12-02 14:45 | ED.EAR ---
HPI - Ear Problem General Chief complaint: Upper Respiratory Infection Stated complaint: pain pressure around earss and sinus Time Seen by Provider: 12/02/20 14:45 Source: patient and RN notes reviewed History of Present Illness HPI Narrative: Patient is a 40-year-old female who presents the urgent care with complaints of bilateral ear pain/fullness and sinus pressure. Patient states that it started Saturday and she has been treating herself with bkgj-qml-jougifx antihistamine and Flonase nasal spray. Patient states that she is unable to blow anything out of her nose but feels like it is full . Patient has a history of chronic sinusitis. No other acute complaints. Denies of any fever, chills, nausea, vomiting, known exposure to Covid, strep or influenza. Patient aware of the plan of care. Some parts of this dictation were generated by voice recognition software and may contain typographical and/or grammatical inaccuracies. Related Data Home Medications Medication Instructions Recorded Confirmed metformin 1,000 mg tablet 1,000 mg PO DAILY 06/23/19 12/02/20 metformin 500 mg tablet,extended 500 mg PO DAILY 06/23/19 04/15/20 release 24 hr copper 380 square mm intrauterine 1 device I-UTERINE ONCE 01/12/20 04/15/20 device Allergies Allergy/AdvReac Type Severity Reaction Status Date / Time bee venom protein (honey bee) Allergy Severe Anaphylactic Verified 12/02/20 14:46 Shock Review of Systems Review of Systems: Narrative: CONSTITUTIONAL: Denies fever, chills, or sweats. EYES: Denies visual changes, redness, or discharge. ENT: Reports of congestion and bilateral ear fullness/pain CARDIOVASCULAR: Denies chest pain, palpitations, or edema. RESPIRATORY: Denies cough or dyspnea. GASTROINTESTINAL: Denies abdominal pain, nausea, vomiting, or diarrhea. GENITOURINARY: Denies dysuria or hematuria. SKIN: Denies rash or itching. MUSCULOSKELETAL: Denies back pain, joint pain, or myalgia. NEUROLOGIC: Denies headache, numbness, or weakness. All other systems reviewed are negative, except as documented in HPI. [facility] Past Medical History Medical History (Updated 12/02/20 @ 14:59 by YUMIKO Morrow) Anxiety Chronic hypertension in Diabetes in HLD (hyperlipidemia) Supervision of high risk elderly multigravida in second trimester Surgical History Surgical History History of cholecystectomy Family History Family History Grandparent Hypertension Mother Hypertension Family history of coronary artery disease Family history of heart disease in male family member before age 55 Father Family history of type 2 diabetes mellitus Diabetes mellitus Hypertension Cerebrovascular accident Social History Social History (Updated 10/26/20 @ 14:01 by Angi Terrazas MA) Social History: Smoking status: Never smoker Second hand tobacco smoke exposure: No Alcohol intake: current Substance use: never Substance use type: does not use Gender identity (if verbalized by the patient): Female Spiritual care concerns: No Comments At the time of my signature, I reviewed and agree with the nursing past medical, surgical, social, and family history. There is no relevant family history pertinent to the patient complaint. Exam Narrative: Exam Narrative: GENERAL: This is a well-nourished, well-developed patient, in no apparent distress. HEAD: normocephalic, atraumatic. Diffuse frontal sinus tenderness EYES: PERRL. Sclera clear/white. Vision is grossly intact. EARS: External ears normal, auditory canals clear and without drainage, unable to visualize left TM due to cerumen impaction, right TMs normal without perforation. Hearing grossly intact. NOSE: External nose normal with no obvious nasal discharge, nares without redness, no rhinorrhea. THROAT: Mucous membranes moist, posterior
[2020-12-02 14:51] VITALS: BP 144/95; PULSE 97; RESP 16; TEMP 37; O2SAT 100
== END 2020-12-02 15:02 | disposition home or self-care (01) ==
PROVIDERS: Emergency Provider Nurse Practitioner Family; PCP Family Medicine
DX: J32.9 Chronic sinusitis, unspecified (principal); E78.5 Hyperlipidemia, unspecified; I10 Essential (primary) hypertension; K21.9 Gastro-esophageal reflux disease without esophagitis; E11.9 Type 2 diabetes mellitus without complications; E28.2 Polycystic ovarian syndrome
CPT/HCPCS: 99213; G0463

== ENCOUNTER 2020-12-30 17:14 | Emergency (ER) | payer OTHER, SELFPAY ==
[2020-12-30 17:20] VITALS: BP 158/90; PULSE 105; RESP 20; TEMP 36.6; O2SAT 100
--- NOTE | 2020-12-30 17:34 | ED.EYEPROB ---
HPI - Eye Problem General Chief complaint: Eye Problems Stated complaint: [facility] Time Seen by Provider: 12/30/20 17:34 Source: patient Mode of arrival: ambulatory Limitations: no limitations History of Present Illness HPI Narrative: Tanja Spring is a 40 yo female comes here with drainage from her right eye. Child was treated her earlier this week for pinkeye and she has been taking care of the child now she seems to have contracted the same. Requesting eyedrops Related Data Home Medications Medication Instructions Recorded Confirmed metformin 1,000 mg tablet 1,000 mg PO DAILY 06/23/19 12/30/20 Allergies Allergy/AdvReac Type Severity Reaction Status Date / Time bee venom protein (honey bee) Allergy Severe Anaphylactic Verified 12/30/20 17:34 Shock Review of Systems Review of Systems: Narrative: CONSTITUTIONAL: Denies fever, chills, sweats. EYES: Denies visual changes, mild redness, right discharge. ENT: Denies rhinorrhea, congestion, sore throat, otalgia. CARDIOVASCULAR: Denies chest pain, palpitations, edema. RESPIRATORY: Denies dyspnea, wheezing, cough GASTROINTESTINAL: Denies abdominal pain, nausea, vomiting, diarrhea. GENITOURINARY: Denies dysuria, hematuria, abnormal discharge SKIN: Denies rash or itching. NEUROLOGIC: Denies numbness, or focal weakness. PSYCHIATRIC: Denies anxiety or depression. [facility] Past Medical History Medical History Anxiety Chronic hypertension in Diabetes in HLD (hyperlipidemia) Supervision of high risk elderly multigravida in second trimester Surgical History Surgical History History of cholecystectomy Family History Family History Grandparent Hypertension Mother Hypertension Family history of coronary artery disease Family history of heart disease in male family member before age 55 Father Family history of type 2 diabetes mellitus Diabetes mellitus Hypertension Cerebrovascular accident Social History Social History Social History: Smoking status: Never smoker Second hand tobacco smoke exposure: No Alcohol intake: current Substance use: never Substance use type: does not use Gender identity (if verbalized by the patient): Female Spiritual care concerns: No Comments At time of signature, I agree with nursing past medical, surgical, social and family history. There is no relevant family history pertinent to the presenting complaint. Exam Narrative: Exam Narrative: GENERAL: This is a well-nourished, well-developed patient, in mild distress. HEAD: normocephalic, atraumatic. EYES: PERRL. Sclera clear/white. Vision is grossly intact.R eye watery with small leson middle lower lid, discharge inner canthus EARS: External ears normal, Hearing grossly intact. NOSE: External nose normal without nasal discharge, nares without redness, no rhinorrhea. THROAT: Mucous membranes moist, posterior pharynx NECK: Neck supple, non-tender CARDIOVASCULAR: Regular rate and rhythm without murmurs, gallops, or rubs. RESPIRATORY: Clear to auscultation. Breath sounds equal bilaterally. No wheezes, rales, or rhonchi. GASTROINTESTINAL: Abdomen soft, non-tender, SKIN: warm, intact with no suspicious lesions or rash, good texture and turgor. NEURO: awake, alert, and oriented to person, place and time. There were no obvious focal neurologic abnormalities. Steady gait EXTREMITIES: Normal range of motion. BACK: Nontender without deformity Course Vital Signs Vital signs: Vital Signs Temperature 98 F 12/30/20 17:20 Pulse Rate 105 H 12/30/20 17:20 Respiratory Rate 20 12/30/20 17:20 Blood Pressure 158/90 H 12/30/20 17:20 Pulse Oximetry 100 12/30/20 17:20 Temperature 98 F 12/30/20 17:2
== END 2020-12-30 18:06 | disposition home or self-care (01) ==
PROVIDERS: Emergency Provider Nurse Practitioner; PCP Family Medicine
DX: H10.31 Unspecified acute conjunctivitis, right eye (principal); E78.5 Hyperlipidemia, unspecified; E11.9 Type 2 diabetes mellitus without complications
CPT/HCPCS: 99213; G0463

== ENCOUNTER 2021-07-03 15:28 | Outpatient (CLI) | payer OTHER, SELFPAY ==
--- NOTE | ~2021-07-03 | MM_ITS ---
EXAMINATION: MM screening ginny BI w lópez HISTORY: Screening TECHNIQUE: Craniocaudal and mediolateral oblique 3-D tomosynthesis images were obtained and synthetic 2-D images were generated. CAD analysis was submitted and interpreted. COMPARISON: No prior mammogram is available for comparison at this institution. BREAST PARENCHYMAL COMPOSITION: There are scattered areas of fibroglandular density. FINDINGS: There is no evidence of suspicious mass, calcification, or architectural distortion to sugg est malignancy in either breast. There has been no suspicious interval change. IMPRESSION: 1. No mammographic evidence of malignancy. 2. Recommend routine screening mammography in one year. BI-RADS Category 1: Negative Reviewed, dictated and finalized at location A. EMIC COUNSELOR
== END 2021-07-03 15:29 | disposition home or self-care (01) ==
LOC: ANHIMG 15:30
PROVIDERS: PCP Family Medicine; Visit Provider Obstetrics & Gynecology
DX: Z12.31 Encounter for screening mammogram for malignant neoplasm of breast (principal)
CPT/HCPCS: 77063; 77067

== ENCOUNTER 2022-08-01 14:28 | Outpatient (CLI) | payer OTHER, SELFPAY ==
--- NOTE | ~2022-08-01 | MM_ITS ---
EXAMINATION: MM screening ginny BI w lópez HISTORY: Screening mammogram TECHNIQUE: Craniocaudal and mediolateral oblique 3-D tomosynthesis images were obtained and synthetic 2-D images were generated. CAD analysis was submitted and interpreted. COMPARISON: 07/03/2021 BREAST PARENCHYMAL COMPOSITION: There are scattered areas of fibroglandular density. FINDINGS: No suspicious mass, calcification, or architectural distortion are identified in either bryan ast to suggest malignancy. There has been no suspicious interval change. IMPRESSION: 1. No mammographic evidence of malignancy. 2. Recommend routine screening mammography in one year. BI-RADS Category 1: Negative Reviewed, dictated and finalized at location A. APY AIDE
== END 2022-08-01 14:29 | disposition home or self-care (01) ==
LOC: CHSIMG 14:30
PROVIDERS: PCP Family Medicine; Visit Provider Obstetrics & Gynecology
DX: Z12.31 Encounter for screening mammogram for malignant neoplasm of breast (principal)
CPT/HCPCS: 77063; 77067

== ENCOUNTER 2022-10-12 16:43 | Emergency (ER) | payer OTHER, SELFPAY ==
[2022-10-12 16:51] VITALS: BP 135/74; PULSE 84; RESP 18; TEMP 36.7; O2SAT 100
--- NOTE | 2022-10-12 16:57 | ED.GENADULT ---
HPI - General Adult General Chief complaint: Urogenital-Female Stated complaint: Poss UTI Source: patient and RN notes reviewed History of Present Illness HPI narrative: 42-year-old female presents to urgent care complaints of dysuria since yesterday. Patient reports burning with urination, urinary urgency, and urinary frequency. Pt denies any abdominal pain, vomiting, fevers, chills, back pain, or flank pain. Pt did take Azo last night and today with moderate relief. Related Data Allergies Allergy/AdvReac Type Severity Reaction Status Date / Time bee venom protein (honey bee) Allergy Severe Anaphylactic Verified 10/12/22 16:55 Shock Review of Systems Review of Systems: Pertinent positives and pertinent negatives per HPI. [facility] Past Medical History Medical History Anxiety Chronic hypertension in Diabetes in HLD (hyperlipidemia) Supervision of high risk elderly multigravida in second trimester Surgical History Surgical History History of section History of cholecystectomy History of knee surgery History of Mckinley-en-Y gastric bypass Family History Family History Grandparent Hypertension Mother Hypertension Family history of coronary artery disease Family history of heart disease in male family member before age 55 Father Family history of type 2 diabetes mellitus Diabetes mellitus Hypertension Cerebrovascular accident Social History Social History Social History: Smoking status: Never smoker Second hand tobacco smoke exposure: No Alcohol intake: current Alcohol use details: occasionally Substance use: never Substance use type: does not use Living arrangements: with family Occupation/Education: occupation Gender identity (if verbalized by the patient): Female Sexual Orientation (if Verbalized by the Patient): Straight or Heterosexual Spiritual care concerns: No Comments At the time of my signature, I reviewed and agree with the nursing past medical, surgical, social, and family history. There is no relevant family history pertinent to the patient complaint. Exam Narrative: GENERAL: This is a well-nourished, well-developed patient, in no apparent distress. HEAD: normocephalic, atraumatic. EYES: PERRL. Sclera clear/white. Vision is grossly intact. EARS: External ears normal, auditory canals clear and without drainage, TMs normal without perforation. Hearing grossly intact. NOSE: External nose normal with no obvious nasal discharge, nares without redness, no rhinorrhea. THROAT: Mucous membranes moist, posterior pharynx clear. NECK: Neck supple, non-tender without lymphadenopathy, masses or thyromegaly. CARDIOVASCULAR: Regular rate and rhythm without murmurs, gallops, or rubs. RESPIRATORY: Clear to auscultation. Breath sounds equal bilaterally. No wheezes, rales, or rhonchi. GASTROINTESTINAL: Abdomen soft, non-tender, nondistended. Bowel sounds are active. No hepato-splenomegaly, or palpable masses. No guarding. SKIN: warm, intact with no suspicious lesions or rash, good texture and turgor. NEURO: awake, alert, and oriented to person, place and time. There were no obvious focal neurologic abnormalities. BACK: Nontender without deformity or crepitance. No flank tenderness. Course Course Level of Care: Express Care Visit Vital Signs Vital signs: Vital Signs Temperature 98.1 F 10/12/22 16:51 Pulse Rate 84 10/12/22 16:51 Respiratory Rate 18 10/12/22 16:51 Blood Pressure 135/74 10/12/22 16:51 Pulse Oximetry 100 10/12/22 16:51 Oxygen Delivery Room Air 10/12/22 16:51 Temperature 98.1 F 10/12/22 16:51 Pulse Rate 84 10/12/22 16:51 Respiratory Rate 18 10/12/22 16:51 Blood Pressure 135/74
== END 2022-10-12 17:10 | disposition home or self-care (01) ==
PROVIDERS: Emergency Provider Nurse Practitioner Family; PCP Family Medicine
DX: N39.0 Urinary tract infection, site not specified (principal); E78.5 Hyperlipidemia, unspecified
CPT/HCPCS: 81003; 87077; 87086; 87186; 99213; G0463

== ENCOUNTER 2022-11-12 16:33 | Outpatient (CLI) | payer OTHER, SELFPAY ==
--- NOTE | ~2022-11-12 | US_ITS ---
US axilla LT 11/12/2022 17:20 Indication: Left axillary ultrasound Procedure: High-resolution ultrasound of the left axilla Comparison: No prior studies for comparison. Findings: Normal heterogeneous echotexture without focal solid or cystic mass. Impression: 1: Normal left axillary ultrasound. Reviewed, dictated and finalized at location A. Impression: 1: Normal left axillary ultrasound.
== END 2022-11-12 16:34 | disposition home or self-care (01) ==
PROVIDERS: PCP Family Medicine; Visit Provider Physician Assistant
DX: N63.32 Unspecified lump in axillary tail of the left breast (principal); R22.32 Localized swelling, mass and lump, left upper limb
CPT/HCPCS: 76882

== ENCOUNTER 2023-02-19 13:14 | Emergency (ER) | payer OTHER, SELFPAY ==
--- NOTE | 2023-02-19 13:15 | ED.FEMALEGU ---
HPI - Female Genitourinary General Chief complaint: Urogenital-Female Stated complaint: Poss UTI Source: patient and RN notes reviewed Mode of arrival: ambulatory Limitations: no limitations History of Present Illness HPI Narrative: Patient is a 42-year-old female who presents to the [facility] with complaints of possible urinary tract infection. Patient states that she has been experiencing dysuria, urinary urgency, and urinary frequency since yesterday. She denies hematuria or flank pain. Denies abdominal pain, nausea, vomiting, diarrhea. Denies recent fevers. Patient states that she has had UTIs in the past with similar symptoms. Related Data Allergies Allergy/AdvReac Type Severity Reaction Status Date / Time bee venom protein (honey bee) Allergy Severe Anaphylactic Verified 12/27/22 08:24 Shock Review of Systems Review of Systems: CONSTITUTIONAL: Denies fever, chills, or sweats. EYES: Denies visual changes, redness, or discharge. ENT: Denies otalgia and sore throat CARDIOVASCULAR: Denies chest pain, palpitations, or edema. RESPIRATORY: Denies cough or dyspnea. GASTROINTESTINAL: Denies abdominal pain, nausea, vomiting, or diarrhea. GENITOURINARY: Reports dysuria, urinary urgency, urinary frequent but denies hematuria. SKIN: Denies rash or itching. MUSCULOSKELETAL: Denies back pain, joint pain, or myalgia. NEUROLOGIC: Denies headache, numbness, or weakness. Pertinent positives per HPI. [facility] Past Medical History Medical History Anxiety Chronic hypertension in Diabetes in HLD (hyperlipidemia) Supervision of high risk elderly multigravida in second trimester Surgical History Surgical History History of section History of cholecystectomy History of knee surgery History of Mckinley-en-Y gastric bypass Family History Family History Grandparent Hypertension Mother Hypertension Family history of coronary artery disease Family history of heart disease in male family member before age 55 Father Family history of type 2 diabetes mellitus Diabetes mellitus Hypertension Cerebrovascular accident Social History Social History Social History: Smoking status: Never smoker Second hand tobacco smoke exposure: No Alcohol intake: current Alcohol use details: occasionally Substance use: never Substance use type: does not use Living arrangements: with family Occupation/Education: occupation Gender identity (if verbalized by the patient): Female Sexual Orientation (if Verbalized by the Patient): Straight or Heterosexual Spiritual care concerns: No Comments At the time of my signature, I reviewed and agree with the nursing past medical, surgical, social, and family history. There is no relevant family history pertinent to the patient complaint. Exam Narrative: GENERAL: This is a well-nourished, well-developed patient, in no apparent distress. HEAD: normocephalic, atraumatic. EYES: Sclera clear/white. Vision is grossly intact. EARS: External ears normal. Hearing grossly intact. NOSE: External nose normal with no obvious nasal discharge, nares without redness, no rhinorrhea. THROAT: Mucous membranes moist, posterior pharynx clear. NECK: Neck supple, non-tender without lymphadenopathy, masses or thyromegaly. CARDIOVASCULAR: Regular rate and rhythm without murmurs, gallops, or rubs. RESPIRATORY: Clear to auscultation. Breath sounds equal bilaterally. No wheezes, rales, or rhonchi. GASTROINTESTINAL: Abdomen soft, non-tender, nondistended. Bowel sounds are active. No hepato-splenomegaly, or palpable masses. No guarding. SKIN: warm, intact with no suspicious lesions or rash, good texture and turgor. NEURO: awake, alert, and orie
[2023-02-19 13:38] VITALS: BP 138/81; PULSE 70; RESP 16; TEMP 36.4; O2SAT 100
== END 2023-02-19 13:53 | disposition home or self-care (01) ==
PROVIDERS: Emergency Provider Nurse Practitioner; PCP Family Medicine
DX: N39.0 Urinary tract infection, site not specified (principal); E78.5 Hyperlipidemia, unspecified
CPT/HCPCS: 81003; 87086; 99213; G0463

== ENCOUNTER 2023-06-13 17:03 | Emergency (ER) | payer BC, OTHER, SELFPAY ==
[2023-06-13 17:19] VITALS: BP 128/78; PULSE 79; RESP 18; TEMP 36.4; O2SAT 100
--- NOTE | 2023-06-13 17:46 | ED.URI ---
HPI - URI/Sore Throat General Chief Complaint: Upper Respiratory Infection Stated Complaint: Congestion/Cough Source: patient and RN notes reviewed History of Present Illness HPI Narrative: 42 yo F presents to urgent care with complaints of congestion and cough x 2 weeks. Pt states she feels the congestion in her chest. Denies any N/V/D, fevers, chills, chest pain, or SOB. Pt has been taking OTC meds with no relief. Related Data Home Medications Medication Instructions Recorded Confirmed copper 380 square mm intrauterine 1 device intrauterine ONCE 05/16/23 06/13/23 device (ParaGard T 380A) Allergies Allergy/AdvReac Type Severity Reaction Status Date / Time bee venom protein (honey bee) Allergy Severe Anaphylactic Verified 06/13/23 17:33 Shock Review of Systems Review of Systems: Pertinent positives and pertinent negatives per HPI. PMFSH Past Medical History Medical History Anxiety Chronic hypertension in Diabetes in History of renal stone HLD (hyperlipidemia) Supervision of high risk elderly multigravida in second trimester Surgical History Surgical History History of section History of cholecystectomy History of knee surgery History of Mckinley-en-Y gastric bypass Family History Family History Grandparent Hypertension Mother Hypertension Family history of coronary artery disease Family history of heart disease in male family member before age 55 Father Family history of type 2 diabetes mellitus Diabetes mellitus Hypertension Cerebrovascular accident Social History Social History Social History: Smoking status: Never smoker Second hand tobacco smoke exposure: No Alcohol intake: current Alcohol use details: occasionally Substance use: never Substance use type: does not use Lack of Transportation: No Lack of Food: Never True Current Housing: I Have Housing Concerned About Future Housing: No Difficulty Paying Gas/Electric Bills: No Difficulty Paying for Meds: No Currently Unemployed: No Difficulty w/ Childcare or Family Care: No Living arrangements: with family Occupation/Education: occupation Gender identity (if verbalized by the patient): Female Sexual Orientation (if Verbalized by the Patient): Straight or Heterosexual Spiritual care concerns: No Comments At the time of my signature, I reviewed and agree with the nursing past medical, surgical, social, and family history. There is no relevant family history pertinent to the patient complaint. Exam Narrative: GENERAL: This is a well-nourished, well-developed patient, in no apparent distress. HEAD: normocephalic, atraumatic. EYES: Sclera clear/white. Vision is grossly intact. EARS: External ears normal, auditory canals clear and without drainage, TMs normal without perforation. Hearing grossly intact. NOSE: External nose normal with no obvious nasal discharge. + congestion THROAT: Mucous membranes moist, posterior pharynx clear. NECK: Neck supple, non-tender without lymphadenopathy, masses or thyromegaly. CARDIOVASCULAR: Regular rate and rhythm without murmurs, gallops, or rubs. RESPIRATORY: Clear to auscultation. Breath sounds equal bilaterally. No wheezes, rales, or rhonchi. SKIN: warm, intact with no suspicious lesions or rash, good texture and turgor. NEURO: awake, alert, and oriented to person, place and time. There were no obvious focal neurologic abnormalities. Course Course Level of Care: Express Care Visit Vital Signs Vital signs: Vital Signs Temperature 97.6 F 06/13/23 17:19 Pulse Rate 79 06/13/23 17:19 Respiratory Rate 18 06/13/23 17:19 Blood Pressure 128/78 06/13/23 17:19 Pulse Oximetry 100 11
== END 2023-06-13 18:05 | disposition home or self-care (01) ==
PROVIDERS: Emergency Provider Nurse Practitioner Family; PCP Family Medicine
DX: J32.9 Chronic sinusitis, unspecified (principal); E78.5 Hyperlipidemia, unspecified; F41.9 Anxiety disorder, unspecified
CPT/HCPCS: 99213; G0463

== ENCOUNTER → 2023-08-16 15:53 | Outpatient (CLI) | payer BC, OTHER, SELFPAY ==
--- NOTE | ~2023-08-16 | US_ITS ---
EXAMINATION: US pelvic complete w TV DATE: 08/16/2023 16:22 INDICATION: Hypertrophy of uterus TECHNIQUE: Multiple transabdominal and endovaginal sonographic images of the pelvis were obtained. COMPARISON: CT abdomen pelvis 03/07/2019. FINDINGS: Uterus: 10.1 x 5.9 x 5.5 cm. Anteverted. IUD, in the uterine body. Endometrial complex measures 4 mm. Right Ovary: 3 x 2.3 x 2.3 cm. Vascular flow is present. No adnexal mass Left Ovary: 4.4 x 2.2 x 2.2 cm. Vascular flow is present. There is no free fluid in the pelvis. IMPRESSION: IUD, in good position. Otherwise normal pelvic sonogram findings. Reviewed, dictated and finalized at location K. [employer]
== END ==
PROVIDERS: PCP Obstetrics & Gynecology; Visit Provider Obstetrics & Gynecology
DX: N85.2 Hypertrophy of uterus (principal); Z98.1 Arthrodesis status
CPT/HCPCS: 76830; 76856

== ENCOUNTER 2023-10-25 13:46 | Outpatient (CLI) | payer BC, OTHER, SELFPAY ==
--- NOTE | ~2023-10-25 | MM_ITS ---
EXAMINATION: MM screening ginny BI w lópez HISTORY: Screening mammogram TECHNIQUE: Craniocaudal and mediolateral oblique 3-D tomosynthesis images were obtained and synthetic 2-D images were generated. CAD analysis was submitted and interpreted. COMPARISON: 07/2022, 07/03/2021 bilateral screening mammogram examinations BREAST PARENCHYMAL COMPOSITION: There are scattered areas of fibroglandular density. FINDINGS: There is no evidence of suspicious mass, calcification, or architectural distortion to sugg est malignancy in either breast. There has been no suspicious interval change. IMPRESSION: 1. No mammographic evidence of malignancy. 2. Recommend routine screening mammography in one year. BI-RADS Category 1: Negative Reviewed, dictated and finalized at location A.
== END 2023-10-25 13:47 | disposition home or self-care (01) ==
PROVIDERS: PCP Family Medicine; Visit Provider Obstetrics & Gynecology
DX: Z12.31 Encounter for screening mammogram for malignant neoplasm of breast (principal)
CPT/HCPCS: 77063; 77067

== ENCOUNTER 2023-12-05 15:02 | Outpatient (CLI) | payer BC, OTHER, SELFPAY ==
--- NOTE | 2023-12-09 17:09 | WPDHOLTEREM ---
Holter/Event Monitor Holter/Event Monitor Date of procedure: 12/05/23 Holter/Event Procedure: 48 Hr Holter Monitor Indications: Palpitations Conclusion: 1. 48 hour holter monitor on 12/05/23. 2. Underlying rhythm is sinus rhythm. HR range 41-128 bpm; average HR 74 bpm. HR at 41 bpm was at 04:15. 3. There are 8 premature supraventricular complexes. No supraventricular tachycardia. 4. There are 34 premature ventricular complexes. No ventricular tachycardia. 5. No sinoatrial or atrioventricular blocks. No significant pauses greater than 2 seconds. 6. Patient reports symptoms of lightheadedness, dizziness, nausea which demonstrate sinus rhythm, HR range 62-109 bpm.
== END 2023-12-05 15:03 | disposition home or self-care (01) ==
LOC: ANHCARD 15:05
PROVIDERS: PCP Family Medicine; Visit Provider Family Medicine
DX: R00.2 Palpitations (principal)
CPT/HCPCS: 93225; 93226

== ENCOUNTER 2024-09-25 11:15 | Emergency (ER) | payer BC, SELFPAY ==
[2024-09-25 11:19] VITALS: BP 145/86; PULSE 72; RESP 18; TEMP 36.9; O2SAT 100
--- NOTE | 2024-09-25 11:32 | ED.URI ---
HPI - URI/Sore Throat General Chief Complaint: Upper Respiratory Infection Stated Complaint: sinus infection Time Seen by Provider: 09/25/24 11:32 Source: patient, RN notes reviewed and old records reviewed Mode of arrival: ambulatory Limitations: no limitations History of Present Illness HPI Narrative: 44-year-old female presents to the [facility] with 2 day history of sinus congestion, pressure. Reports that she has been sneezing as well. Onset (ago): day(s) (2) Related Data Home Medications ?Medication ?Instructions ?Recorded ?Confirmed ?Last Taken ?Type copper 380 square mm intrauterine 1 device intrauterine ONCE 05/16/23 09/25/24 Unknown History device (ParaGard T 380A) metoprolol tartrate 25 mg tablet 12.5 mg PO BID 08/05/24 09/25/24 Unknown History iud 09/25/24 Unknown History Allergies Allergy/AdvReac Type Severity Reaction Status Date / Time bee venom protein (honey bee) Allergy Severe Anaphylactic Verified 09/25/24 11:24 Shock Review of Systems Review of Systems: All systems reviewed & are unremarkable except as noted in HPI and below Constitutional: Constitutional: Reports no additional constitutional complaints ENT: Reports as per HPI Cardiovascular: Cardiovascular: Reports no additional cardiovascular complaints, Denies chest pain and Denies dyspnea Respiratory: Respiratory: Reports no additional respiratory complaints, Denies chest congestion, Denies cough and Denies dyspnea Musculoskeletal: Musculoskeletal: Reports no additional musculoskeletal complaints Integumentary/Breasts: Skin/Breast: Reports system reviewed and no additional complaints, except as docu PMFSH Past Medical History Medical History Ureteral stone right History of renal stone right HLD (hyperlipidemia) Diabetes in Chronic hypertension in Supervision of high risk elderly multigravida in second trimester Anxiety Surgical History Surgical History Hx of lithotripsy 06/2023 History of Mckinley-en-Y gastric bypass History of section History of knee surgery History of cholecystectomy Family History Family History Grandparent Hypertension Mother Hypertension Family history of coronary artery disease Family history of heart disease in male family member before age 55 Father Family history of type 2 diabetes mellitus Diabetes mellitus Hypertension Cerebrovascular accident Social History Social History Social History: Smoking status: Never smoker Second hand tobacco smoke exposure: No Alcohol intake: current Alcohol use details: occasionally Substance use: never Substance use type: does not use Lack of Transportation: No Lack of Food: Never True Current Housing: I Have Housing Concerned About Future Housing: No Difficulty Paying Gas/Electric Bills: No Difficulty Paying for Meds: No Currently Unemployed: No Difficulty w/ Childcare or Family Care: No Living arrangements: with family Occupation/Education: occupation Gender identity (if verbalized by the patient): Female Sexual Orientation (if Verbalized by the Patient): Straight or Heterosexual Spiritual care concerns: No Comments At the time of my signature, I reviewed and agree with the nursing past medical, surgical, social, and family history. There is no relevant family history pertinent to the patient complaint. Exam Const: General: cooperative, healthy appearing, comfortable, no acute distress, well developed, alert and well nourished Nutritional Appearance: well nourished Orientation/consciousness: patient oriented x3 Limitations: no limitations HENMT: Head: normal to inspection Ears: hearing grossly normal bilaterally, external ears normal, TM's normal bilaterally, EAC's normal, mastoids normal and no periauricular adenopathy Face/Nose/Sinus: Normal external nose present, Normal nares present, Nasal discharge present clear bilateral, face symmetric and sinus tenderness Face and sinus: normal facial exam Mouth: Yes Normal oral and palatal mucosa present, Yes lip normal, Yes tongue normal and Yes moist mucous membranes Throat: posterior oropharynx normal, uvula midline and no uvular edema Eyes: General: appearance normal, both eyes and all related structures Alignment and Position: alignment normal Neck: Neck: normal visual inspection, full ROM, no lymphadenopathy and no meningeal signs Chest: Chest palpation & inspection: normal inspection of the chest Resp: Effort & Inspection: normal respiratory effort and able to speak in complete sentences Auscultation: clear to auscultation bilaterally, no crackles, no rales, no rhonchi and no wheezes Cardio: Rate: regular rate Skin: General skin exam: normal color and no rashes or lesions noted Neuro: General: patient oriented x3, gait normal, moves all extremities and no meningeal signs Cognition (Neuro): normal cognition Speech: normal speech Gait exam (Neuro): Normal gait present Extrem: General: normal to inspection, full ROM, capillary refill normal and normal gait Psych: Appearance: grossly normal and well kempt Mental Status: mental status grossly normal Speech and movement: Normal speech and movement present and Clear speech present Affect: normal affect Attitude: cooperative Course Course Level of Care: Express Care Visit Vital Signs Vital signs: Vital Signs Temperature 98.5 F 09/25/24 11:19 Pulse Rate 72 09/25/24 11:19 Respiratory Rate 18 09/25/24 11:19 Blood Pressure 145/86 H 09/25/24 11:19 Pulse Oximetry 100 09/25/24 11:19 Oxygen Delivery Room Air 09/25/24 11:19 Temperature 98.5 F 09/25/24 11:19 Pulse Rate 72 09/25/24 11:19 Respiratory Rate 18 09/25/24 11:19 Blood Pressure 145/86 H 09/25/24 11:19 Pulse Oximetry 100 09/25/24 11:19 Oxygen Delivery Room Air 09/25/24 11:19 Reviewed MDM - URI/Sore Throat MDM Narrative Medical decision making narrative: Patient sitting comfortably in exam room. Nontoxic, vitals stable. Patient in no acute distress. Patient presents with 2 day history of URI symptoms, sinus symptoms. Flu and COVID are negative. Most likely a rhinosinusitis. Patient appropriate for outpatient treatment with close follow-up Discharge instructions reviewed with patient, as well as provided in writing per nursing staff. The instructions also include specific and strict return/GO TO THE ER as well as f/u information. All questions have been answered, and the patient deny any further questions with discharge and discharge plan. Some parts of this dictation were generated by voice recognition software and may contain typographical and/or grammatical inaccuracies. Differential Diagnosis Differential diagnosis: Likely upper respiratory infection, otitis media, sinusitis, viral infection and influenza Lab Data Labs: Lab Results 09/25/24 Range/Units 11:54 POC Influenza A Ag Negative (Negative) POC Influenza B Ag Negative (Negative) POC SARS CoV-2 Ag Negative (Negative) Reviewed Critical Care Time Critical Care Time Critical Care Time: No Discharge Plan Discharge Clinical Impression: Sinusitis Patient Disposition: Home, Self-Care Condition: Stable Instructions: Antibiotic Form, Sinusitis (ED) Additional Instructions: Your rapid COVID test were negative Your rapid flu test was negative Your symptoms are likely due to a viral illness, which is not treated with antibiotics. Typically viral infections last 7-10 days, can linger for couple of weeks. It is very important to treat your symptoms. Drink plenty of water, Gatorade, Pedialyte, ice pops or Jell-O. -Alternate Tylenol and Motrin per package directions for fever or pain. You can alternate every 4 hours -Antihistamine medication such as Zyrtec/Claritin/Suaznna during the day can help improve symptoms. -doing daily nasal irrigations can help relieve pressure your sinuses. Things like a Neti pot -Use Flonase twice a day for 5 days then daily to help reduce the inflammation and dry up your sinuses. -You can also use Mucinex. Be sure to drink plenty of water with this medication at least 8 ounces with every dose and it is important to drink 8 to 10 glasses of water per day. Water is a natural decongestant -Eat and drink things that are easy to swallow, like tea or soup, or popsicles. -Oral rinses such as: Salt water gargles and/or may use topical anesthetic (eg. Chloraseptic spray) or lozenges to relieve dryness or throat pain). -Frequent hand washing or hand cotton buyer is one of the best ways to prevent spread of infection. -Using a vaporizer or humidifier at night will also help thin secretions and help with coughing up phlegm. -Follow up with primary care provider in 7-10 days if condition is not improving - For new or worsening symptoms go directly to the nearest ER Patient Language: Indonesian Prescriptions: No Action iud ParaGard T 380A 380 square mm intrauterine device 1 device intrauterine ONCE Rx Instructions: inserted 01/15/20 pantoprazole 40 mg tablet,delayed release (DR/EC) 40 mg PO QAM Qty: 90 3RF Dayvigo 5 mg tablet 5 mg PO QHS PRN (Reason: insomnia) Qty: 30 2RF lorazepam 0.5 mg tablet 0.5 mg PO BID PRN (Reason: anxiety) Qty: 10 0RF epinephrine [EpiPen 2-Esteban] 0.3 mg/0.3 mL auto-injector 0.3 mg IM ONCE PRN (Reason: anaphylaxis) Qty: 2 1RF Rx Instructions: as a single dose as needed for anaphylaxis. metoprolol tartrate 25 mg tablet 12.5 mg PO BID Rx Instructions: as per cardio escitalopram oxalate [Lexapro] 20 mg tablet 20 mg PO DAILY Qty: 90 1RF Follow-up/Referrals: Leonel Willis MD [Primary Care Provider] - 2 Weeks ([facility] care follow up ) Stand Alone Forms: Work/School Release IP Time of Disposition: 11:57
[2024-09-25 11:56] LABS: EDCOVIDSCREEN Negative (Negative); EDINFLUASCREEN Negative (Negative); EDINFLUBSCREEN Negative (Negative)
== END 2024-09-25 12:06 | disposition home or self-care (01) ==
PROVIDERS: Emergency Provider Nurse Practitioner; PCP Family Medicine
DX: J32.9 Chronic sinusitis, unspecified (principal); E78.5 Hyperlipidemia, unspecified; Z20.822 Contact with and (suspected) exposure to COVID-19
CPT/HCPCS: 87426; 87804; 99212; G0463

== ENCOUNTER 2024-12-30 08:19 | Outpatient (CLI) | payer BC, SELFPAY ==
--- NOTE | ~2024-12-30 | MM_ITS ---
EXAMINATION: MM screening ginny BI w lópez HISTORY: Screening mammogram TECHNIQUE: Craniocaudal and mediolateral oblique 3-D tomosynthesis images were obtained and synthetic 2-D images were generated. CAD analysis was submitted and interpreted. COMPARISON: 10/25/2023 through 07/03/2021 BREAST PARENCHYMAL COMPOSITION: There are scattered areas of fibroglandular density. FINDINGS: There is no evidence of suspicious mass, calcification, or architectural distortion to sug gest malignancy in either breast. There has been no suspicious interval change. IMPRESSION: 1. No mammographic evidence of malignancy. 2. Recommend routine screening mammography in one year. BI-RADS Category 1: Negative Reviewed, dictated and finalized at location B.
--- OUTSIDE RECORDS SUMMARY | 2024-12-30 08:25 | XMS_ITS | Continuity of Care Document ---
Author Organization [facility] Address [address] [place] [address] Phone Care Team Providers Care Golf Cart Repairer Name Role Phone Unavailable Unavailable Unavailable Advance Directives Directive Yes / No Effective Date File Name No Information Encounters Encounter Description Practice Location Reason(s) For Visit Diagnoses Date Provider Providers Copied on Encounter [facility], [address], [place], [place], [id number], [place] tel:[phone] [facility] No Information 0 3 No Information Referring Provider: DORINDA PASTOR, [address] [place] [address],[place], [address]. tel:[phone] Family History Family Member Type Diagnosis Age At Onset No Information Payers Payer name Insurance type Covered alliance party ID Authoriza ticarol(s) HENRY PPO [id number] CI [id number] Social History Type Description Quantity Date Captured Comments Sex Female Smoking Status No Information Chief Complaint And Reason For Visit No Information History Of Present Illness Encounter Date Complaint History Of Prese nt Illness No Information Instructions Date Instruction Additional Infor mation No Information Assessments Type Assessment Date No Information
--- OUTSIDE RECORDS SUMMARY | 2024-12-30 08:25 | XMS_ITS | Clinical Summary ---
Author Organization [facility] Address [address] [place] [address] Care Team Providers Care Superintendent Fish Hatchery Name Role Phone Unavailable Primary Care Provider Unavailabl e Source Comments [facility],non-owned Affiliates and Associated Physician Practices is amultiple site organization consisting of ambulatory clinics and hospital sitesin [place], [place], [place] and [place]. This disclosure is being madepursuant to the Care Everywhere program and may not contain all information available regarding this patient. Last updated 18.[facility] Allergies No known active allergies Medications * Be aware that medications may not be up to date on this document. Alwaysverify current medications with the patient. Norethin-Eth Estrad-Fe Biphas (LO LOESTRIN FE PO) Acti ve olmesartan (BENICAR) 40 MG tablet Take 40 mg by mouth once daily Active fluticasone propionate (FLONASE) 50 MCG/ACT nasal sprayIndication s:Cough,Rhinosi nusitis Timbo 2 sprays into each nostril once daily 1 bottles 09/24/2017 Active benzonatate (TESSALON) 200 MG capsuleIndicati ons:Cough Take 1 capsule by mouth 3 times daily as needed for Cough 30 capsule 09/24/2017 Active Social History Tobacco Use Types Packs/Day Years Used Date Smoking Tobacco: Never Assessed Comments No Sex and Gender Information Value Date Recorded Sex Assigned at Not on file Legal Sex Female 2:45 PM CONSUMER LENDER Gender Identity Not on file Sexual Orientation Not on file Last Filed Vital Signs Vital Sign Reading Time Taken Comments Blood Pressure 122/88 09/24/2017 3:14 PM CONSUMER LENDER Pulse 89 09/24/2017 3:14 PM CONSUMER LENDER Temperature 37.4 C (99.3 F) 09/24/2017 3:14 PM CONSUMER LENDER Respiratory Rate - - Oxygen Saturation - - Inhaled Oxygen Concentration - - Weight 127 kg (280 lb) 09/24/2017 3:14 PM CONSUMER LENDER Height 167.6 cm (5' 6) 09/24/2017 3:14 PM CONSUMER LENDER Body Mass Index 45.19 09/24/2017 3:14 PM CONSUMER LENDER Plan of Treatment Health Maintenance Due Date Last Done Comments LIPID TESTING 1980 MAMMOGRAM 1980 HIV SCREENING 1995 HEPATITIS C SCREENING 06/13/1998 DTAP/TDAP/TD VACCINES (1 - Tdap) 1999 HEPATITIS B VACCINE (1 of 3 - 19+ 3-dose series) 1999 COVID-19 VACCINE ( - 2023-2 5 season) 2024 DEPRESSION SCREENING 07/29/2024 INFLUENZA VACCINE (Season Ended) 2025 ZOSTER VACCINE (1 of 2) 2030 HIB VACCINE Aged Out No longer eligi ble based on patient's age to complete this topic HPV VACCINE Aged Out No longer eligi ble based on patient's age to complete this topic MENINGOCOCCAL (Group B) VACC INE SHARED DECISION-MAKING Aged Out No longer eligibl e based on patient's age to complete this topic MENINGOCOCCAL GROUPS A/C/Y/W VACCINE Aged Out No longer eligible b ased on patient's age to complete this topic PNEUMOCOCCAL VACCINE Aged Out No long er eligible based on patient's age to complete this topic Insurance [employer]
--- OUTSIDE RECORDS SUMMARY | 2024-12-30 08:25 | XMS_ITS | Clinical Summary ---
Author Organization [address] Address [address] [place] [address] Phone Care Team Providers Care Welding Equipment Repairer Supervisor Name Role Phone Leonel Willis MD Primary Care Provider [phone] Allergies No known active allergies Medications aspirin (EVA CHEWABLE) 81 mg Tablet, Chewable Take 81 mg by mouth daily. Active vit-iron fumarate-fa (SONIA ) 28 mg iron- 800 mcg Tablet Take 1 Tablet by mouth daily. Active sertraline (ZOLOFT) 100 mg tablet Take 100 mg by mouth daily. Active metFORMIN (GLUCOPHAGE) 1,000 mg tabletIndicatio ns:pt is taking 500mg in AM and 1000mg in PM Take 1,000 mg by mouth daily at bedtime. Active metFORMIN (GLUCOPHAGE) 500 mg tablet Take 500 mg by mouth daily. Active Insulin Spencer, Disposable, (Keturah Pen Needle) 32 gauge x 5/32 Needle Use with insulin admin once daily, up to BID 100 Each 3 0 Active insulin detemir U-100 (Levemir FlexTouch U-100 Insuln) 100 unit/mL pen syringe Inject 22U SQ daily at bedtime. Pt may be increased in this and can be expected to reach maximum dosing of 60U daily. 9 mL 6 0 Active Additional Information Patient taking differently: Inject 34U SQ daily at bedtime. Pt may be increased in this and can be expected to reach maximum dosing of 60U daily., Reported on 11/02/2019 famotidine (PEPCID) 10 mg tabletIndicatio ns:pt is taking as needed Take 10 mg by mouth 2 times daily. Active labetaloL (NORMODYNE) 200 mg tablet Take 100 mg by mouth 2 times daily. Active Active Problems Problem Noted Date Diagnosed Date Anxiety during 07/20/2019 EKG, abnormal 07/14/2019 Supervision of high risk in third trim coleman 06/16/2019 Insulin controlled gestation al diabetes mellitus (GDM) in third trimester 06/16/2019 resulting from ass isted reproductive technology in third trimester 06/16/2019 Advanced maternal age in multigravida, third tri mester 06/16/2019 Obesity in , antepartum 06/16/2019 History of gestational diabe chapin in prior , currently , third trimester 06/16/2019 Pre-existing essential hyper tension during in third trimester 06/12/2019 Anxiety state 06/12/2019 PCOS (polycystic ovarian syndrome) 06/12/2019 Insulin resistance 06/12/2019 Resolved Problems Problem Noted Date Diagnosed Date Resolved Date Hypertension affecting pregn nela in second trimester 06/16/2019 07/14/2019 Diet controlled gestational diabetes mellitus (GDM) 06/12/2019 07/14/2019 Social History Tobacco Use Types Packs/Day Years Used Date Smoking Tobacco: Never Smokeless Tobacco: Never Comments No Sex and Gender Information Value Date Recorded Sex Assigned at Not on file Legal Sex Female 4:11 PM MUSEUM DOCENT Gender Identity Not on file Sexual Orientation Not on file Last Filed Vital Signs Vital Sign Reading Time Taken Comments Blood Pressure 138/80 11/02/2019 10:58 AM CDT patient reported Pulse 78 06/16/2019 2:08 PM MUSEUM DOCENT Temperature 36.9 C (98.4 F) 10/12/2019 11:23 AM CDT Respiratory Rate 16 07/20/2019 2:14 PM MUSEUM DOCENT Oxygen Saturation 98% 06/16/2019 2:0 8 PM MUSEUM DOCENT Inhaled Oxygen Concentration - - Weight 127.5 kg (281 lb) 11/02/2019 10: 58 AM CDT patient reported Height 167.6 cm (5' 6) 06/16/2019 2:08 PM MUSEUM DOCENT Body Mass Index 45.35 06/16/2019 2:08 PM MUSEUM DOCENT Plan of Treatment Health Maintenance Due Date Last Done Comments DTAP/TDAP/TD VACCINES (1 - Tdap) 1999 HEPATITIS B VACCINES (1 of 3 - 19+ 3-dose series) 1999 HPV/Cotest (21-29) 2001 CERVICAL CANCER SCREENING 2010 HPV/Cotest (30-65) 2010 PAP SMEAR 2010 BREAST CANCER SCREENING 2020 INFLUENZA VACCINE (#1) 2024 05/09/2019 HPV VACCINES Aged Out No longer eligi ble based on patient's age to complete this topic Insurance [employer] OPEN ACCESS Care Teams Welding Equipment Repairer Supervisor Relationship Specialty Start Date End Date Leonel Willis MD [address] [facility] [address] [place] [address] PCP - General Family Practice 07/27/19
--- OUTSIDE RECORDS SUMMARY | 2024-12-30 08:25 | XMS_ITS | Clinical Summary ---
Author Organization [facility] Address [address] [place] [address] Care Team Providers Care Aqueduct And Reservoir Keeper Name Role Phone Leonel Willis MD Primary Care Provider Brent Hanna MD Unavailable [phone] Allergies Active Allergy Reactions Criticality Noted Date Comments Venom-Honey Bee Anaphylaxis High 06/18/2012 Medications LORazepam (ATIVAN) 0.5 mg tablet Take by mouth 2 (two) times a day as needed [address] (PROTONIX) 40 mg EC tabletIndicati ons:Treatment of Non-Bleeding Gastric Disorder Take 1 tablet (40 mg total) by mouth daily 30 tablet 4 025 Active EPINEPHrine 0.3 mg/0.3 mL auto-injection syringe 0.3MG INTRAMUSCULARY ROUTE NEEDED FOR ANAPHYLAXIS 4 Active Dayvigo 5 mg tablet Take 1 tablet by mouth nightly at bedtime 4 Active escitalopram (LEXAPRO) 10 mg tablet Take 1 tablet (10 mg total) by mouth daily 4 Active metoprolol XL (TOPROL-XL) 25 mg extended release tablet Take 1 tablet (25 mg total) by mouth daily 90 tablet 2 5 026 Active Active Problems Problem Noted Date Diagnosed Date Dysautonomia 09/23/2024 Assessment & Plan (09/23/2024 10:49 AM RESEARCH ASSOCIATE): -TTT 08/05/2024: Tachycardia dominant dysautonomia related to upright posture c/w POTS pattern, started on metoprolol XL 12.5 mg daily -She is doing well on low dose metoprolol with significant improvement in her symptoms of tachycardia -Continue metoprolol XL 12.5 mg daily -Continue to maintain adequate hydration Near syncope 06/24/2024 Palpitations 04/08/2024 History of Mckinley-en-Y gastric bypass 10/22/2023 Hypopotassemia 10/22/2023 Hypocalcemia 10/22/2023 Gastroesophageal reflux disease 11/08/2021 Primary hypertension 11/08/2021 SHASHI (generalized anxiety disorder) 11/08/2021 Resolved Problems Problem Noted Date Diagnosed Date Resolved Date Abdominal pain 10/22/2023 12/31/2023 Morbid obesity 11/08/2021 12/31/2023 BMI 45.0-49.9, adult 09/27/2021 024 Encounters Date Type Department Care Team Description 10/12/2024 10:00 AM CDT Office Visit [facility] [address] [place] [address] Rogelio Gates MD Dysautonomia (HCC) (Primary Dx); Primary hypertension from Last 3 Months Immunizations Immunization Administration Dates Next Due Influenza, Trivalent, Preservative Free, Intramu scular 08/05/2024 Surgical History Surgery Date Site/Laterality Comments CHOLECYSTECTOMY MENISCUS SURGERY Medical History Medical History Date Comments Hypertension Polycystic ovary syndrome Acid reflux Insomnia Anxiety Sleep apnea PONV (postoperative nausea and vomiting) Family History Medical History Relation Name Comments Diabetes Father Obesity Father Blood Clot Maternal Grandmother Early menopause Maternal Grandmother Gallbladder disease Maternal Grandmother Glaucoma Maternal Grandmother Heart disease Maternal Grandmother Hypertension Maternal Grandmother Infertile Maternal Grandmother stillbirth Maternal Grandmother Blood Clot Mother Early menopause Mother Gallbladder disease Mother Heart disease Mother Hypertension Mother Infertile Mother Miscarriages / Stillbirths Mother stillbirth Mother Breast cancer Other great aunt Blood Clot Sister Deafness Sister Anesthesia problems Neg Hx Relation Name Status Comments Father Maternal Grandmother Mother Other Sister Social History Tobacco Use Types Packs/Day Years Used Date Smoking Tobacco: Never Tobacco Cessation:Counseling Given: Not Answered Alcohol Use Standard Drinks/Week Comments Yes 0 (1 standard drink = 0.6 oz pur e alcohol) [facility] Utilities Answer Date Recorded In the past 12 months has th e electric, gas, oil, or water company threatened to shut off services in your home? No 10/23/2023 Social Connection and Isolat ion Panel [NHANES] Answer Date Recorded In a typical week, how many times do you talk on the phone with family, friends, or neighbors? More than three times a week 10/23/2023 How often do you get togethe r with friends or relatives? More than three times a week 10/23/2023 How often do you attend chur ch or mandaen services? Never 10/23/2023 Do you belong to any clubs o r organizations such as adventism groups, unions, fraternal or athletic groups, or school groups? No 10/23/2023 How often do you attend meet ings of the clubs or organizations you belong to? Never 10/23/2023 Are you , , di vorced, , never , or living with a partner? Living with partner 10/23/2023 AUDIT-C Answer Date Recorded Q1: How often do you have a drink containing alc ohol? Monthly or less 08/05/2024 Q2: How many drinks containi ng alcohol do you have on a typical day when you are drinking? 1 or 2 08/05/2024 Q3: How often do you have si x or more drinks on one occasion? Never 08/05/2024 Overall Financial Resource Strain (CARDIA) Answe r Date Recorded How hard is it for you to pa y for the very basics like food, housing, medical care, and heating? Not hard at all 10/23/2023 Hunger Vital Sign Answer Date Recorded Within the past 12 months, y ou worried that your food would run out before you got the money to buy more. Never true 10/23/19 24 Within the past 12 months, t he food you bought just didn't last and you didn't have money to get more. Never true 10/23/2023 PRAPARE - Transportation Answer Date Re corded In the past 12 months, has l ack of transportation kept you from medical appointments or from getting medications? No 09/27 In the past 12 months, has l ack of transportation kept you from meetings, work, or from getting things needed for daily living? No 10/23/2023 Housing Stability Vital Sign Answer Brannon e Recorded In the last 12 months, was t here a time when you were not able to pay the mortgage or rent on time? No 10/23/2023 In the last 12 months, how many places have you lived? 1 10/23/2023 In the last 12 months, was t here a time when you did not have a steady place to sleep or slept in a mcc (including now)? No 10/23/2023 Personal Safety Answer Date Recorded Have you ever been in or are you currently in a harmful physical or emotional relationship or is someone making you feel afraid or unsafe? Denies 08/05/2024 Comments No Sex and Gender Information Value Date Recorded Sex Assigned at Not on file Legal Sex Female 11:24 AM RESEARCH ASSOCIATE Gender Identity Not on file Sexual Orientation Not on file Obstetrics History Para Term AB IAB SAB Ectopic Multiple Livin g Live Births 1 Date Outcome GA Total Labor Labor/2nd/3rd Weight Sex Type Anes PTL Nidia A1 A5 Name Clin 2012 Term F Vag-S pont Living Last Filed Vital Signs Vital Sign Reading Time Taken Comments Blood Pressure 130/88 10/12/2024 10:18 AM CDT Pulse 71 10/12/2024 10:18 AM CDT Temperature 36.7 C (98.1 F) 08/05/2024 6:20 AM RESEARCH ASSOCIATE Respiratory Rate 19 08/05/2024 11:0 0 AM RESEARCH ASSOCIATE Oxygen Saturation 98% 10/12/2024 10: 18 AM CDT Inhaled Oxygen Concentration - - Weight 90.1 kg (198 lb 11.2 oz) 025 10:18 AM CDT Height 165.1 cm (5' 5) 10/12/2024 10:1 8 AM CDT Body Mass Index 33.07 10/12/2024 10:18 AM CDT Plan of Treatment Health Maintenance Due Date Last Done Comments Breast Cancer Screening-Mammogram 1980 Cervical Cancer Screening 1980 Depression Screening 1980 Hepatitis C Screening 1980 Varicella Vaccines (1 of 2 - 13+ 2-dose series) 1993 Hepatitis B Screening 1998 Regular Well Visit/Exam 18-64 1998 Covid-19 Vaccine (2023-2 5 season) 2024 04/24/2021, 09/08/2020, 08/17/2020 DTaP/Tdap/Td Vaccine (2 - Td or Tdap) 10/30/2029 10/31/2019 Influenza Vaccine Completed 08/05/2024 HPV Vaccines Aged Out No longer eligi ble based on patient's age to complete this topic Pneumococcal vaccine <65 Aged Out No longer eligible based on patient's age to complete this topic Medical Devices Implanted Type Area Chairman & Ceo Device Identifier Shelf Expiration Date Model / Serial / Lot [employer] Bariatric Peristrip Non Crosslinked Bovine Pericardium For Endo Britney Thin [id number] - [id number] Implanted:Qty: 1 on 04/16/2022 by Raghav Espitia MD at [facility] Staple N/A: Stomach [employer] 02/14/2023 [id number] / / [id number] [employer] Bariatric Peristrip Non Crosslinked Bovine Pericardium For Endo Britney Thin [id number] - [id number] Implanted:Qty: 1 on 04/16/2022 by Raghav Espitia MD at [facility] Staple N/A: Stomach [employer] 02/14/2023 [id number] THN / / [id number] Procedures Procedure Name Priority Date/Time Associated Diagnosis Comments POCT LIPID PANEL Routine 10/12/2024 10:3 8 AM CDT Primary hypertension from Last 3 Months Results * POCT lipid panel (10/12/2024 10:38 AM CDT) Cholesterol, POC 168 mg/dL HDL, POC 82 mg/dL Triglycerides, POC 77 mg/dL LDL Cholesterol POC 71 mg/dL Chol/HDL Ratio, POC 0.9 Non-HDL Cholesterol, POC 87 mg/dL Cholesterol Total, POC 168 mg/dL Capillary blood 10/12/2024 1 0:38 AM CDT us Rogelio Gates MD POINT OF CARE TEST ORDER MYCHAL Final Result from Last 3 Months Insurance [employer] [facility] [employer] [facility] [id number] [facility] Advance Directives For more information, please contact: [phone] * Full Code (Latest Code Status on File) Date Activated Date Inactivated Comments 10/22/2023 1:30 AM 10/23/2023 8:51 PM * Full Code Date Activated Date Inactivated Comments 04/16/2022 11:15 AM 04/19/2022 1:45 PM Care Teams Aqueduct And Reservoir Keeper Relationship Specialty Start Date End Date Leonel Willis MD [address] [place] [address] PCP - General 03/13/19 Brent Hanna MD [address] [place] [address] Consulting Physician Urology 10/23/23
--- OUTSIDE RECORDS SUMMARY | 2024-12-30 08:25 | XMS_ITS | Clinical Summary ---
Author Organization [facility] Address [address] [place] [address] Phone Care Team Providers Care Supervisory Forester Name Role Phone Leonel Willis MD Primary Care Provider Allergies Active Allergy Reactions Criticality Noted Date Comments Bee Venom Anaphylaxis 02/11/2024 Medications No known medications Social History Tobacco Use Types Packs/Day Years Used Date Smoking Tobacco: Never Assessed Comments Unknown Sex and Gender Information Value Date Recorded Sex Assigned at Not on file Legal Sex Female 3:41 AM GLASS TOUGHENING OPERATOR Gender Identity Not on file Sexual Orientation Not on file Last Filed Vital Signs Vital Sign Reading Time Taken Comments Blood Pressure 118/67 02/11/2024 7:15 PM CDT Pulse 66 02/11/2024 7:15 PM CDT Temperature 36.8 C (98.2 F) 02/11/2024 4:20 PM CDT Respiratory Rate 9 02/11/2024 7:15 PM CDT Oxygen Saturation 100% 02/11/2024 7:15 PM CDT Inhaled Oxygen Concentration - - Weight 78.5 kg (173 lb) 02/11/2024 4:21 PM CDT Height 165.1 cm (5' 5) 02/11/2024 4:21 PM CDT Body Mass Index 28.79 02/11/2024 4:21 PM CDT Plan of Treatment Not on file Insurance [facility] Care Teams Supervisory Forester Relationship Specialty Start Date End Date Leonel Willis MD [address] [place] [address] PCP - General Family Medicine 02/11/24
--- OUTSIDE RECORDS SUMMARY | 2024-12-30 08:25 | XMS_ITS | Referral Summary ---
Author Organization [facility] Address [address] [place] [address] Care Team Providers Care Edge Grinder Machine Name Role Phone Leonel Willis MD Primary Care Provider Brent Hanna MD Unavailable Encounters Date Type Department Care Team Description 10/12/2024 10:00 AM CDT Office Visit [facility] Cardiology [address] [place] [address] Rogelio Gates MD Dysautonomia (HCC) (Primary Dx); Primary hypertension from Last 3 Months Allergies Active Allergy Reactions Criticality Noted Date [...] total) by mouth daily 90 tablet 2 03/17/202 5 026 Active Active Problems Problem Noted Date Diagnosed Date Dysautonomia 09/23/2024 Assessment & Plan (09/23/2024 10:49 AM GOLF COURSE KEEPER): -TTT 08/05/2024: Tachycardia dominant dysautonomia related to [...] 11/08/2021 12/31/2023 BMI 45.0-49.9, adult 09/27/2021 024 Immunizations Immunization Administration Dates Next Due Influenza, Trivalent, Preservative Free, Intramu scular 08/05/2024 Social History Tobacco Use Types Packs/Day Years Used Date Smoking Tobacco: Never Tobacco Cessation:Counseling Given: Not Answered Alcohol Use Standard Drinks/Week Comments Yes 0 (1 standard drink = 0.6 oz pur e alcohol) [facility] Utilities Answer Date Recorded In the past 12 months has [employer], [email or web address], oil, or water [employer] threatened to shut off services in your [...] 10/23/2023 How often do you attend chur or mormon services? Never 10/23/2023 Do you belong to any clubs o r organizations such as islam groups, unions, fraternal or athletic groups, or [...] place to sleep or slept in a half-way (including now)? No 10/23/2023 Personal Safety Answer Date Recorded Have you ever been in or are you currently in a harmful physical or emotional relationship or is someone making you feel afraid or unsafe? Denies 08/05/2024 Comments No Sex and Gender Information Value Date Recorded Sex Assigned at Not on file Legal Sex Female 11:24 AM GOLF COURSE KEEPER Gender Identity Not on file Sexual Orientation Not on file Last Filed Vital Signs Vital Sign Reading Time Taken Comments Blood Pressure 130/88 10/12/2024 10:18 AM CDT Pulse 71 10/12/2024 10:18 AM CDT Temperature 36.7 C (98.1 F) 08/05/2024 6:20 AM GOLF COURSE KEEPER Respiratory Rate 19 08/05/2024 11:0 0 AM GOLF COURSE KEEPER Oxygen Saturation 98% 10/12/2024 10: 18 AM CDT Inhaled Oxygen Concentration - - Weight 90.1 kg (198 lb 11.2 oz) 025 10:18 AM CDT Height 165.1 cm (5' 5) 10/12/2024 10:1 8 AM CDT Body Mass Index 33.07 10/12/2024 10:18 AM CDT Plan of Treatment Not on file Medical Devices Implanted Type Area Hand Worker Device Identifier Shelf Expiration Date Model / Serial / Lot [employer] Bariatric Peristrip Non Crosslinked Bovine Pericardium For Endo Britney Thin [id number] - [id number] Implanted:Qty: 1 on 04/16/2022 by Raghav Espitia MD at [facility] Staple N/A: Stomach [employer] 02/14/2023 [id number] / / [id number] [employer] Bariatric Peristrip Non Crosslinked Bovine Pericardium For Endo Britney Thin [id number] - [id number] Implanted:Qty: 1 on 04/16/2022 by Raghav Espitia MD at [facility] Staple N/A: Stomach [employer] 02/14/2023 [id number] / / [id number] Procedures Procedure Name Priority Date/Time Associated Diagnosis [...] Capillary blood 10/12/2024 1 0:38 AM CDT Rogelio Gates MD POINT OF CARE TEST ORDER MYCHAL Final Result from Last 3 Months Insurance [id number] [place] [address] [facility] [id number] [facility] Advance Directives For more information, please contact: [phone] * Full Code (Latest Code Status on File) Date Activated Date Inactivated Comments 10/22/2023 1:30 AM 10/23/2023 8:51 PM * Full Code Date Activated Date Inactivated Comments 04/16/2022 11:15 AM 04/19/2022 1:45 PM Care Teams Edge Grinder Machine Relationship Specialty Start Date End Date Leonel Willis MD [address] [place] [address] PCP - General 03/13/19 Brent Hanna MD [address] [place] [address] Consulting Physician Urology 10/23/23
== END 2024-12-30 08:20 | disposition home or self-care (01) ==
LOC: CHSIMG 08:21
PROVIDERS: PCP Family Medicine; Visit Provider Nurse Practitioner Family
DX: Z12.31 Encounter for screening mammogram for malignant neoplasm of breast (principal)
CPT/HCPCS: 77063; 77067